=== PATIENT | female | born 1950 | race Caucasian/White ===

== ENCOUNTER → 2017-07-28 | Outpatient (CLI) | payer MEDICARE, MEDICAID ==
--- NOTE | 2017-07-28 12:22 | Diagnostic Imaging Report ---
INDICATION: Wheezing and shortness of air. TIME OF EXAMINATION: 11:44 AM. COMPARISON: No prior studies are available for comparison. FINDINGS: The heart size is normal. No infiltrate or failure is detected. No effusion or pneumothorax is seen. There is an age-indeterminate midshaft fracture of the left clavicle with displacement, likely chronic. IMPRESSION: No acute cardiopulmonary process is detected. Dictated by: Dictated on workstation # [id number]
== END ==
LOC: RAD 11:19
PROVIDERS: ATTEND Internal Medicine Critical Care Medicine
DX: R06.02 Shortness of breath (principal); R06.2 Wheezing
CPT/HCPCS: 71046

== ENCOUNTER → 2017-08-15 | Outpatient (CLI) | payer MEDICARE, MEDICAID ==
[~2017-08-15] MED LIST: RT-ALBUTEROL SULF 2.5 MG/3 ML PRE-MIX VIAL INH ONE
== END ==
LOC: EDUNIT# 07-28 10:36 → RT 08:37
PROVIDERS: ATTEND Internal Medicine Critical Care Medicine
DX: R06.02 Shortness of breath (principal)
CPT/HCPCS: 94060; 94726; 94729

== ENCOUNTER 2017-09-29 09:00 | Outpatient (RCR) | payer MEDICARE, MEDICAID ==
[2017-10-04 09:00] VITALS: BP 125/60
[2017-10-04 10:00] VITALS: BP 122/90
[2017-10-11 09:00] VITALS: BP 140/69
[2017-10-11 10:00] VITALS: BP 120/60
[2017-10-13 08:50] VITALS: BP 120/70
[2017-10-13 10:00] VITALS: BP 115/60
[2017-10-18 08:50] VITALS: BP 130/80
[2017-10-18 10:00] VITALS: BP 120/80
[2017-10-20 08:53] VITALS: BP 130/60
[2017-10-20 10:05] VITALS: BP 122/80
[2017-10-25 09:00] VITALS: BP 131/100
[2017-10-25 10:00] VITALS: BP 140/70
[2017-10-27 08:55] VITALS: BP 154/89
[2017-10-27 09:50] VITALS: BP 130/80
[2017-11-01 09:00] VITALS: BP 130/60
[2017-11-01 10:00] VITALS: BP 128/60
[2017-11-03 08:40] VITALS: BP 132/90
[2017-11-03 08:42] VITALS: BP 132/90
[2017-11-03 09:44] VITALS: BP 124/80
[2017-11-03 10:00] VITALS: BP 124/80
== END 2017-11-27 | disposition home or self-care (01) ==
LOC: PULM 09:00
PROVIDERS: ATTEND Internal Medicine Critical Care Medicine
DX: J44.9 Chronic obstructive pulmonary disease, unspecified (principal)
CPT/HCPCS: 99211

== ENCOUNTER 2018-04-06 10:00 | Outpatient (RCR) | payer MEDICARE, MEDICAID ==
[2018-01-24 10:00] VITALS: BP 122/80
[2018-01-24 10:50] VITALS: BP 123/60
[2018-01-26 09:58] VITALS: BP 120/60
[2018-01-26 10:50] VITALS: BP 115/60
[2018-01-31 09:50] VITALS: BP 140/92
[2018-01-31 10:40] VITALS: BP 128/60
[2018-02-02 09:58] VITALS: BP 120/82
[2018-02-02 10:55] VITALS: BP 122/82
[2018-02-07 09:55] VITALS: BP 140/60
[2018-02-07 10:50] VITALS: BP 120/50
[2018-02-09 10:00] VITALS: BP 128/72
[2018-02-09 11:15] VITALS: BP 128/80
[2018-02-14 09:50] VITALS: BP 145/60
[2018-02-14 10:47] VITALS: BP 120/60
[2018-02-16 10:00] VITALS: BP 140/90
[2018-02-16 11:00] VITALS: BP 120/40
[2018-02-23 10:00] VITALS: BP 120/60
[2018-02-23 11:00] VITALS: BP 120/76
[2018-02-28 10:00] VITALS: BP 128/60
[2018-02-28 11:00] VITALS: BP 122/60
[2018-03-02 09:58] VITALS: BP 118/80
[2018-03-02 11:03] VITALS: BP 120/80
[2018-03-07 09:55] VITALS: BP 122/80
[2018-03-07 11:00] VITALS: BP 130/80
[2018-03-09 10:00] VITALS: BP 121/40
[2018-03-09 11:12] VITALS: BP 135/50
[2018-03-14 10:00] VITALS: BP 150/70
[2018-03-14 10:56] VITALS: BP 130/80
[2018-03-16 10:00] VITALS: BP 120/60
[2018-03-16 10:49] VITALS: BP 120/60
[2018-03-21 09:50] VITALS: BP 158/82
[2018-03-21 10:50] VITALS: BP 141/77
[2018-03-23 09:44] VITALS: BP 151/90
[2018-03-23 10:58] VITALS: BP 150/82
[2018-03-28 10:00] VITALS: BP 120/80
[2018-03-28 11:00] VITALS: BP 130/50
[2018-03-30 10:00] VITALS: BP 120/60
[2018-03-30 11:00] VITALS: BP 140/81
[2018-04-04 10:00] VITALS: BP 152/70
[2018-04-04 10:58] VITALS: BP 140/80
[2018-04-06 09:55] VITALS: BP 130/67
[2018-04-06 10:57] VITALS: BP 130/72
[2018-04-11 09:40] VITALS: BP 154/94
[2018-04-11 10:23] VITALS: BP 138/76
[2018-04-13 10:50] VITALS: BP 138/90
[2018-04-18 10:00] VITALS: BP 140/82
[2018-04-18 11:00] VITALS: BP 130/80
== END 2018-04-16 | disposition home or self-care (01) ==
LOC: PULM 10:00
PROVIDERS: ATTEND Nurse Practitioner Family
DX: J44.9 Chronic obstructive pulmonary disease, unspecified (principal)
CPT/HCPCS: 99211

== ENCOUNTER 2018-06-01 10:00 | Outpatient (RCR) | payer MEDICARE, MEDICAID ==
[2018-04-20 09:45] VITALS: BP 130/70
[2018-04-20 10:53] VITALS: BP 127/50
[2018-04-25 10:00] VITALS: BP 130/50
[2018-04-25 11:00] VITALS: BP 115/50
[2018-04-27 09:55] VITALS: BP 135/78
[2018-04-27 10:50] VITALS: BP 122/80
[2018-05-02 09:50] VITALS: BP 120/80
[2018-05-02 10:40] VITALS: BP 160/60
[2018-05-04 10:00] VITALS: BP 140/80
[2018-05-04 11:03] VITALS: BP 130/80
[2018-05-09 09:40] VITALS: BP 128/87
[2018-05-09 10:50] VITALS: BP 130/80
[2018-05-11 10:00] VITALS: BP 130/85
[2018-05-11 11:00] VITALS: BP 138/80
[2018-05-16 09:45] VITALS: BP 130/80
[2018-05-16 11:00] VITALS: BP 132/82
[2018-05-18 10:00] VITALS: BP 160/80
[2018-05-18 11:00] VITALS: BP 134/62
[2018-05-23 11:00] VITALS: BP 150/60
[2018-05-30 09:45] VITALS: BP 160/80
[2018-05-30 10:50] VITALS: BP 120/90
[2018-06-01 10:00] VITALS: BP 130/60
[2018-06-01 11:00] VITALS: BP 140/80
== END 2018-07-19 | disposition home or self-care (01) ==
LOC: PULM 10:00
PROVIDERS: ATTEND Nurse Practitioner Family
DX: J44.9 Chronic obstructive pulmonary disease, unspecified (principal)

== ENCOUNTER 2018-09-18 10:35 | Emergency (ER) | payer MEDICARE, MEDICAID ==
[~2018-09-18] VITALS: Ht 170.2 cm; Wt 72.1 kg
[2018-09-18 12:13] LABS: HEMOGLOBIN 11.1 G/DL (11.5-16.0); MEAN CORPUSCULAR HEMOGLOBIN 28 PG (25-34); WHITE BLOOD COUNT 8.7 10^3/uL (4.3-11.0)
[2018-09-18 12:14] LABS: BASOPHILS # (AUTO) 0.1 10^3/uL (0.0-0.1); BASOPHILS % (AUTO) 1 % (0-10); EOSINOPHILS # (AUTO) 0.1 10^3/uL (0.0-0.3); EOSINOPHILS % (AUTO) 1 % (0-10); HEMATOCRIT 35 % (35-52); LYMPHOCYTES # (AUTO) 1.3 X 10^3 (1.0-4.0); LYMPHOCYTES % (AUTO) 14 % (12-44); MEAN CORPUSCULAR HGB CONC 31 G/DL (32-36); MEAN CORPUSCULAR VOLUME 89 FL (80-99); MEAN PLATELET VOLUME 9.7 FL (7.4-10.4); MONOCYTES # (AUTO) 0.8 X 10^3 (0.0-1.0); MONOCYTES % (AUTO) 9 % (0-12); NEUTROPHILS # (AUTO) 6.4 X 10^3 (1.8-7.8); NEUTROPHILS % (AUTO) 74 % (42-75); PLATELET COUNT 308 10^3/uL (130-400); RED CELL DISTRIBUTION WIDTH 13.4 % (10.0-14.5)
--- NOTE | 2018-09-18 12:33 | Diagnostic Imaging Report ---
INDICATION: Shortness of breath. TIME OF EXAM: 12:07 p.m. COMPARISON: Correlation is made with prior study from 07/28/2017. FINDINGS: The heart is enlarged but stable. There are some interstitial changes in both lungs, which are more prominent than prior exam. No parenchymal consolidation is seen. No effusion or pneumothorax is identified. IMPRESSION: Cardiomegaly and mild interstitial changes which may be owing to mild congestion. Dictated by: Dictated on workstation # [id number]
[2018-09-18 12:35] LABS: BUN/CREATININE RATIO 16; CARBON DIOXIDE 26 MMOL/L (21-32); CHLORIDE 103 MMOL/L (98-107); CREATININE SERUM 0.82 MG/DL (0.60-1.30); GFR ESTIMATED > 60; GLUCOSE 97 MG/DL (70-105); SODIUM 143 MMOL/L (135-145)
[2018-09-18 12:36] LABS: ALANINE AMINOTRANSFERASE 7 U/L (0-55); ALBUMIN 4.1 GM/DL (3.2-4.5); ALKALINE PHOSPHATASE 100 U/L (40-136); BILIRUBIN,TOTAL 0.4 MG/DL (0.1-1.0); CALCIUM 9.9 MG/DL (8.5-10.1); TOTAL PROTEIN 7.2 GM/DL (6.4-8.2)
--- NOTE | 2018-09-18 12:36 | Diagnostic Imaging Report ---
PROCEDURE: CT head without contrast. TECHNIQUE: Multiple contiguous axial images were obtained through the brain without the use of intravenous contrast. INDICATION: Altered mental status. COMPARISON: No prior studies are available for comparison. FINDINGS: Ventricles are within normal limits. There appears to be some mild cerebellar atrophy present. No midline shift or hemorrhage is detected. Cisterns are patent. Visualized paranasal sinuses are clear. IMPRESSION: No acute intracranial process is detected. Dictated by: Dictated on workstation # [id number]
--- NOTE | 2018-09-18 12:50 | NUR ---
Report was given to Mylene at this time and care was transferred.
[2018-09-18 12:53] LABS: LIPASE 27 U/L (8-78)
[2018-09-18 13:07] VITALS: BP_SYST 135; BP_SYST 142; BP_SYST 143; BP_DIAS 75; BP_DIAS 80; BP_DIAS 88
[2018-09-18] MEDS ORDERED: FUROSEMIDE 40 MG/4 ML INJ (LASIX) IVP ONE (13:15)
--- NOTE | 2018-09-18 13:35 | ED Dyspnea ---
General Chief Complaint: Neurological Problems Stated Complaint: ALTERED MENTAL STATUS Nursing Triage Note: Pt arrived by private car with overnight caregiver, with chief complaint of alerted mental status. Pt was wheeled to room 1 and assisted into bed. Pt's overnight caregiver stated that according to her boyfriend the patient has been hallucinated this weekend. According to the patient this started yesterday. Pt also stated she was not feeling well. Pt was able to tell me the day of week, time of day, month, year, president, current location and name/. Pt has had previous stroke according to certified social workers in health care. History of Present Illness Date Seen by Provider: Sep 18, 2018 Time Seen by Provider: 12:30 Initial Comments This is a 68 y/o f who presents to the ED for evaluation. Pt with multiple complaints. Pt is alert to self/place/year but has poor memory and is a very poor historian. She has poor insight into her chronic medical conditions and is not able to provide complete details. Her home health provider is at bedside and helps a little bit more. Caregiver reports significant dyspnea over the past 2-3 weeks, progressive. Has history of COPD is on 2L at home but now requiring continuously for the past 2- 3 days. Pt denies any exertional chest pain. No LE edema. Denies history of CHF but is on daily lasix. Pt also with increased confusion and periods of hallucination over the past 2-3 days. Per family at home she has been frequently talking to people who are not present. Pt with history of CVA does not have any residual weakness. denies any dysuria, no fever, no cough. Allergies and Home Medications Allergies Coded Allergies: strawberry (Unverified Allergy, Severe, HIVES, 08/15/17) Penicillins (Unverified Allergy, Unknown, RASH, 08/15/17) Patient Home Medication List Home Medication List Reviewed: Yes Review of Systems Review of Systems Constitutional: No chills, No fever, No weakness Constitutional: No chills, No fever, No weakness Skin: no rash, no itching, no lesions Resp: no cough,+ SOB< no wheezing Cards: no chest pain, +orthopnea, no palpitations GI: no abdominal pain, no nausea, no vomiting, no diarrhea : no dysuria Endo: no polyuria, no polyphagia, no polydipsia Psych: No depression, no substance abuse, No substance abuse Past Fcdeusi-Philus-Grncbn Hx Patient Social History Alcohol Use: Denies Use Recreational Drug Use: No Smoking Status: Former Smoker Type Used: Cigarettes 2nd Hand Smoke Exposure: No Recent Foreign Travel: No Contact w/Someone Who Travel: No Recent Infectious Disease Expo: No Recent Hopitalizations: No Physical Abuse: No Sexual Abuse: No Mistreated: No Fear: No Seasonal Allergies Seasonal Allergies: No Past Medical History Surgeries: No Emphysema Cardiac: Yes High Cholesterol Neurological: Yes (CVA) Headaches /Migraines Genitourinary: No Gastrointestinal: No Musculoskeletal: Yes (nondisplaced fracture of distal fibula, displaced fracture fifth metacarpal) HEENT: No Cancer: No Psychosocial: No Integumentary: Yes (cellulitis, abscess of neck) Blood Disorders: No Physical Exam Vital Signs Vital Signs - First Documented 09/18/18 11:19 Temp 98.8 Pulse 108 Resp 18 B/P (MAP) 135/75 (95) Pulse Ox 90 O2 Delivery Nasal Cannula O2 Flow Rate 2.50 Capillary Refill : Less Than 3 Seconds Height, Weight, BMI Height: 5'7.00" Weight: 159lbs. 0.4oz. [id number]; BMI Method:Stated General Appearance: No Apparent Distress, Chronically ill Other comments HEENT: NC/AT Neck: No JVD, Normal ROM Respiratory: No respiratory distress, bilateral crackles, no wheezing Cardio: RRR, no rubs, no murmurs, no clicks, no gallops, Radial pulses +2/4 bilateral GI: Soft, non-distended, no masses, non-tender Back: Normal ROM Extremities: No swelling, no deformities, intact general mobility/ROM, pulses present in all 4 extremities Neuro: Alert to self/place/year, confused, unable to provide recent history. Follows commands. non-focal neurological exam. Psych: Calm, Cooperative, Focused Exam Lactate Level 09/18/18 12:00: Lactic Acid Level 0.95 Lactic Acid Level Laboratory Tests Test 09/18/18 12:00 Lactic Acid Level 0.95 MMOL/L (0.50-2.00) Progress/Results/Core Measures Results/Orders Lab Results Laboratory Tests Test 09/18/18 12:00 09/18/18 13:45 Range/Units White Blood Count 8.7 4.3-11.0 10^3/uL Red Blood Count 3.98 L 4.35-5.85 10^6/uL Hemoglobin 11.1 L 11.5-16.0 G/DL Hematocrit 35 35-52 % Mean Corpuscular Volume 89 80-99 FL Mean Corpuscular Hemoglobin 28 25-34 PG Mean Corpuscular Hemoglobin Concent 31 L 32-36 G/DL Red Cell Distribution Width 13.4 10.0-14.5 % Platelet Count 308 130-400 10^3/uL Mean Platelet Volume 9.7 7.4-10.4 FL Neutrophils (%) (Auto) 74 42-75 % Lymphocytes (%) (Auto) 14 12-44 % Monocytes (%) (Auto) 9 0-12 % Eosinophils (%) (Auto) 1 0-10 % Basophils (%) (Auto) 1 0-10 % Neutrophils # (Auto) 6.4 1.8-7.8 X 10^3 Lymphocytes # (Auto) 1.3 1.0-4.0 X 10^3 Monocytes # (Auto) 0.8 0.0-1.0 X 10^3 Eosinophils # (Auto) 0.1 0.0-0.3 10^3/uL Basophils # (Auto) 0.1 0.0-0.1 10^3/uL Sodium Level 143 135-145 MMOL/L Potassium Level 4.0 3.6-5.0 MMOL/L Chloride Level 103 98-107 MMOL/L Carbon Dioxide Level 26 21-32 MMOL/L Anion Gap 14 5-14 MMOL/L Blood Urea Nitrogen 13 7-18 MG/DL Creatinine 0.82 0.60-1.30 MG/DL Estimat Glomerular Filtration Rate > 60 BUN/Creatinine Ratio 16 Glucose Level 97 70-105 MG/DL Lactic Acid Level 0.95 0.50-2.00 MMOL/L Calcium Level 9.9 8.5-10.1 MG/DL Corrected Calcium 9.8 8.5-10.1 MG/DL Total Bilirubin 0.4 0.1-1.0 MG/DL Aspartate Amino Transf (AST/SGOT) 15 5-34 U/L Alanine Aminotransferase (ALT/SGPT) 7 0-55 U/L Alkaline Phosphatase 100 40-136 U/L Troponin T 44 H <=10 NG/L Pro-B-Type Natriuretic Peptide 6403.0 H <75.0 PG/ML Total Protein 7.2 6.4-8.2 GM/DL Albumin 4.1 3.2-4.5 GM/DL Lipase 27 8-78 U/L Urine Color YELLOW Urine Clarity CLEAR Urine pH 7.0 5-9 Urine Specific [place] 1.010 L 1.016-1.022 Urine Protein TRACE NEGATIVE Urine Glucose (UA) NEGATIVE NEGATIVE Urine Ketones NEGATIVE NEGATIVE Urine Nitrite NEGATIVE NEGATIVE Urine Bilirubin NEGATIVE NEGATIVE Urine Urobilinogen 0.2 NORMAL MG/DL Urine Leukocyte Esterase NEGATIVE NEGATIVE Urine RBC (Auto) NEGATIVE NEGATIVE Urine RBC NONE /HPF Urine WBC NONE /HPF Urine Crystals NONE /LPF Urine Bacteria NONE /HPF Urine Casts NONE /LPF Urine Mucus NEGATIVE /LPF Urine Culture Indicated NO My Orders Orders - LARISA SOLANO DO Continuous Ekg Monitoring (09/18/18 11:35) Orthostatic Vital Signs (Adult (09/18/18 11:35) Cbc With Automated Diff (09/18/18 11:35) Comprehensive Metabolic Panel (09/18/18 11:35) Lipase (09/18/18 11:35) Lactic Acid Analyzer (09/18/18 11:35) Ua Culture If Indicated (09/18/18 11:35) Troponin T (09/18/18 11:35) Chest 1 View Ap/Pa Only (09/18/18 11:35) Ekg Tracing (09/18/18 11:35) Ct Head Wo (09/18/18 11:35) Probnp Fs (09/18/18 12:37) Furosemide Injection (Lasix Injection) (09/18/18 13:15) Medications Given in ED Current Medications Medications Dose Ordered Sig/Jalyn Route Start Time Stop Time Status Last Admin Dose Admin Furosemide 40 mg ONCE ONCE IVP 09/18/18 13:15 09/18/18 13:16 DC 09/18/18 13:52 40 MG Vital Signs/I&O 09/18/18 11:19 Temp 98.8 Pulse 108 Resp 18 B/P (MAP) 135/75 (95) Pulse Ox 90 O2 Delivery Nasal Cannula O2 Flow Rate 2.50 Blood Pressure Mean: 95 Progress Progress Note : Time: 13:00 Progress Note Pt with progressive dypsnea over the past few weeks and likely new onset CHF. Requiring continuous supplemental NC here with O2 sat of 88% on RA. no wheezing on exam. labs consistent with CHF exacerbation as well. Pending urine still. CT head with no acute findings. Pt will require hospitalization for likely new onset CHF. [facility] on diversion. Family prefers transfer to [facility] but there are no beds available there. Discussed with Dr. Churchill, prescriptionist with Cardiology at [facility] who have accepted the pt. BP has remained stable. She remains oriented to self/place/year but continues to seem pleasantly confused on continued conversations. IV lasix given in ED. EKG with no acute ischemic changes. Will transfer when [facility] [employer] farm[employer] service available. 1433: UA with no acute infection. Initial ECG Impression Date: Sep 18, 2018 EKG : EKG Time: 12:29 Rate: 107 Rhythm: S.Tach Comment No previous to compared to. Moderate artifiact. No significant ST segment or T wave changes. Diagnostic Imaging Comments CXR IMPRESSION: Cardiomegaly and mild interstitial changes which may be owing to mild congestion. CT Head IMPRESSION: No acute intracranial process is detected. Departure Impression Primary Impression: Acute respiratory distress Additional Impressions: Hypoxia Dyspnea Congestive heart failure Confusion Disposition: 02 XFER SHT-TRM HOSP Condition: Unchanged Departure-Patient Inst. Referrals: ZOHRA GARCIA APRN (PCP/Family) Primary Care Physician LARISA SOLANO DO Sep 18, 2018 13:34
[2018-09-18 14:03] LABS: BILIRUBIN,URINE NEGATIVE (NEGATIVE); CLARITY,URINE CLEAR; COLOR,URINE YELLOW; GLUCOSE, URINE (UA) NEGATIVE (NEGATIVE); KETONES,URINE NEGATIVE (NEGATIVE); LEUKOCYTE ESTERASE ,URINE NEGATIVE (NEGATIVE); NITRITE,URINE NEGATIVE (NEGATIVE); PROTEIN,URINE TRACE (NEGATIVE); UROBILINOGEN,URINE 0.2 MG/DL (NORMAL)
[2018-09-18 16:00] VITALS: BP 127/94
== END 2018-09-18 16:00 | disposition short-term general hospital (02) ==
LOC: EDUNIT# 10:35 → ER FS 10:38
DX: R09.02 Hypoxemia (principal); I50.9 Heart failure, unspecified; R06.00 Dyspnea, unspecified; R41.0 Disorientation, unspecified; R06.03 Acute respiratory distress; J43.9 Emphysema, unspecified; G43.909 Migraine, unspecified, not intractable, without status migrainosus; Z99.81 Dependence on supplemental oxygen; Z86.73 Personal history of transient ischemic attack (TIA), and cerebral infarction without residual deficits; Z88.0 Allergy status to penicillin; Z91.018 Allergy to other foods; Z87.891 Personal history of nicotine dependence
CPT/HCPCS: 36415; 51702; 70450; 71045; 80053; 81000; 83605; 83690; 83880; 84484; 85025; 93005

== ENCOUNTER → 2019-02-15 | Outpatient (CLI) | payer MEDICARE, MEDICAID ==
--- NOTE | 2019-02-15 12:24 | Diagnostic Imaging Report ---
EXAMINATION: CT of the chest without contrast (lung cancer screening). HISTORY: Greater than [id number] history of smoking. FINDINGS: No comparison available. There is moderate emphysema. No edema or pneumonia. No pleural effusion or pneumothorax. There is a small perifissural lymph node measuring 6 mm along the right major fissure. No suspicious nodules are seen. Heart size is normal. No pericardial effusion. Aorta is normal in caliber. There are mild coronary artery calcifications. No axillary, supraclavicular or mediastinal lymphadenopathy. There is a small hiatal hernia. Upper abdomen is otherwise normal. No suspicious osseous lesions are seen. There are subacute right seventh and eighth rib fractures. There is a mild T10 compression fracture. Age indeterminate. IMPRESSION: 1. No suspicious pulmonary nodules. 2. Subacute right seventh and eighth rib fractures. 3. Mild age-indeterminate T10 compression fracture. LungRads category: 2. Modifier: S. OTHER SIGNIFICANT FINDINGS: Rib fractures and compression fracture as described above. Dictated by: Dictated on workstation # [id number]
== END ==
LOC: RAD 10:48
PROVIDERS: ATTEND Nurse Practitioner Family
DX: S22.41XA Multiple fractures of ribs, right side, initial encounter for closed fracture (principal); S22.078A Other fracture of T9-T10 vertebra, initial encounter for closed fracture; Z87.891 Personal history of nicotine dependence

== ENCOUNTER → 2019-06-25 | Outpatient (CLI) | payer MEDICARE, MEDICAID ==
[~2019-06-25] MED LIST changes: +CATHETER FLUSH 10 ML SYR IV PRN; +HOLD METFORMIN - RECEIVED CONTRAST 20 ML VIAL IV SCH; +IOHEXOL 350 MG/ML 100 ML (OMNIPAQUE 350) VIAL IV ONE; +NS 100 ML (IVPB) BAG IV ONE; +RT-ALBUTEROL SULF 2.5 MG/3 ML PRE-MIX VIAL ONE
[2019-06-25 09:54] LABS: CREATININE SERUM 1.21 MG/DL (0.60-1.30)
--- NOTE | 2019-06-25 11:35 | Diagnostic Imaging Report ---
PROCEDURE: CT chest with contrast only. TECHNIQUE: Multiple contiguous axial images were obtained through the chest after administration of intravenous contrast. Auto Exposure Controls were utilized during the CT exam to meet ALARA standards for radiation dose reduction. DATE: June 25, 2019. COMPARISON: Chest radiograph September 18, 2018. CT chest February 15, 2019. This is grossly unchanged since February 15, 2019 given differences in exam technique. There is a subjacent 2 mm noncalcified right upper lobe pulmonary nodule. There is a 4 mm right middle lobe INDICATION: 69-year-old female, shortness of breath. FINDINGS: There are upper lobe predominant findings of centrilobular emphysema. There is a pleural-based right upper lobe pulmonary nodule on axial image 55 which measures 5 mm in size. There is a subjacent 2 mm right middle lobe pulmonary nodule and 4 mm right lower lobe pulmonary nodule on axial image 71. These are unchanged since prior CT chest. There is a 4 mm right lower lobe nodular opacity on axial image 64 which is unchanged. There is no new or enlarging pulmonary nodule. There is no additional focal airspace consolidation. There is no pneumothorax. There is no pleural effusion. The central airways are patent. There is no identified pulmonary embolus. The main pulmonary artery diameter is within normal limits. The heart is not enlarged. There is no pericardial effusion. There is no identified abnormally enlarged mediastinal, hilar, or axillary lymph node which meets CT size criteria for adenopathy. There are numerous low-attenuation lesions in the bilateral kidneys, many of which are too small to characterize. This appearance may reflect polycystic kidney disease. There is no renal atrophy. There is cholelithiasis without evidence of acute cholecystitis. There is a small to moderate-sized hiatal hernia. There are fractures of the right seventh and eighth ribs with prominent callus formation and lack of complete mature bony bridging at the current time. There is interval healing response since February 15, 2019. There is a compression type deformity of T10 without well visualized fracture line. This is unchanged since July 28, 2017. IMPRESSION: CT CHEST. 1. Stable subcentimeter pulmonary nodule since at least February 15, 2019. Recommend followup CT chest in 6 months to evaluate for continued stability. 2. Prominent upper lobe predominant findings of centrilobular emphysema. 3. No identified acute cardiopulmonary abnormality. 4. Incidental findings as above. Dictated by: Dictated on workstation # [id number]
== END ==
LOC: RAD 09:12
PROVIDERS: ATTEND Nurse Practitioner Family
DX: J43.2 Centrilobular emphysema (principal); M48.54XD Collapsed vertebra, not elsewhere classified, thoracic region, subsequent encounter for fracture with routine healing; N28.9 Disorder of kidney and ureter, unspecified; K80.20 Calculus of gallbladder without cholecystitis without obstruction; K44.9 Diaphragmatic hernia without obstruction or gangrene; R91.8 Other nonspecific abnormal finding of lung field; J42 Unspecified chronic bronchitis; G47.36 Sleep related hypoventilation in conditions classified elsewhere; G47.34 Idiopathic sleep related nonobstructive alveolar hypoventilation; F17.201 Nicotine dependence, unspecified, in remission
CPT/HCPCS: 36415; 71260; 82565; 84520; 94060; 94640; 94726; 94729

== ENCOUNTER 2019-09-04 10:45 | Outpatient (RCR) | payer MEDICARE, MEDICAID ==
[2019-07-10 10:45] VITALS: BP 100/50
[2019-07-10 11:30] VITALS: BP 92/63
[2019-07-12 10:45] VITALS: BP 120/70
[2019-07-12 11:52] VITALS: BP 100/50
[2019-07-17 10:36] VITALS: BP 130/60
[2019-07-17 11:40] VITALS: BP 114/80
[2019-07-19 10:30] VITALS: BP 118/80
[2019-07-19 11:40] VITALS: BP 115/60
[2019-07-24 10:20] VITALS: BP 128/80
[2019-07-24 11:37] VITALS: BP 118/80
[2019-07-26 10:20] VITALS: BP 130/87
[2019-07-26 11:40] VITALS: BP 100/70
[2019-08-02 10:35] VITALS: BP 115/60
[2019-08-02 11:43] VITALS: BP 106/80
[2019-08-07 10:25] VITALS: BP 120/60
[2019-08-07 11:43] VITALS: BP 130/90
[2019-08-09 10:25] VITALS: BP 131/64
[2019-08-09 11:17] VITALS: BP 112/72
[2019-08-14 10:45] VITALS: BP 120/60
[2019-08-14 11:51] VITALS: BP 106/80
[2019-08-16 10:20] VITALS: BP 130/70
[2019-08-16 11:47] VITALS: BP 127/80
[2019-08-21 10:45] VITALS: BP 100/60
[2019-08-21 11:39] VITALS: BP 106/74
[2019-08-23 10:30] VITALS: BP 122/65
[2019-08-23 11:55] VITALS: BP 120/60
[2019-08-28 10:45] VITALS: BP 120/60
[2019-08-28 11:39] VITALS: BP 116/60
[2019-08-30 10:28] VITALS: BP 120/60
[2019-08-30 11:45] VITALS: BP 106/62
[2019-08-30 11:50] VITALS: BP 130/60
[2019-09-04 10:40] VITALS: BP 122/68
[2019-09-04 11:30] VITALS: BP 120/60
[2019-09-06 10:15] VITALS: BP 140/78
[2019-09-06 11:24] VITALS: BP 114/80
[2019-09-11 10:30] VITALS: BP 128/67
[2019-09-11 11:35] VITALS: BP 128/60
[2019-09-13 10:20] VITALS: BP 120/80
[2019-09-13 11:37] VITALS: BP 105/60
[2019-09-18 10:45] VITALS: BP 108/58
[2019-09-18 12:00] VITALS: BP 113/60
[2019-09-20 09:55] VITALS: BP 98/50
[2019-09-20 10:32] VITALS: BP 108/60
== END 2019-09-18 | disposition home or self-care (01) ==
LOC: PULM 10:45
PROVIDERS: ATTEND Nurse Practitioner Family
DX: J44.9 Chronic obstructive pulmonary disease, unspecified (principal); J42 Unspecified chronic bronchitis; F17.201 Nicotine dependence, unspecified, in remission; G47.34 Idiopathic sleep related nonobstructive alveolar hypoventilation; G47.36 Sleep related hypoventilation in conditions classified elsewhere
CPT/HCPCS: 99211

== ENCOUNTER → 2020-02-01 | Outpatient (CLI) | payer MEDICARE, MEDICAID ==
[~2020-02-01] MED LIST changes: -RT-ALBUTEROL SULF 2.5 MG/3 ML PRE-MIX VIAL INH ONE; -RT-ALBUTEROL SULF 2.5 MG/3 ML PRE-MIX VIAL ONE
[2020-02-01 09:46] LABS: CREATININE SERUM 1.16 MG/DL (0.60-1.30)
--- NOTE | 2020-02-01 11:29 | Diagnostic Imaging Report ---
PROCEDURE: CT chest with contrast only. TECHNIQUE: Multiple contiguous axial images were obtained through the chest after administration of intravenous contrast. Auto Exposure Controls were utilized during the CT exam to meet ALARA standards for radiation dose reduction. INDICATION: Shortness of breath, chronic bronchitis. COMPARISON: June 25, 2019, and February 15, 2019. FINDINGS: Calcified right hilar lymph nodes are present. No pathologically enlarged lymph nodes within the chest. No aneurysmal dilatation of the thoracic aorta. Minimal scattered vascular calcifications. The heart is within normal limits in size. Moderate-sized hiatal hernia. No pericardial effusion. No pleural effusion. Moderate background predominantly centrilobular emphysematous changes are again identified. These have an upper lobe predilection. 0.4 cm pleural-based right upper lobe pulmonary nodule is again identified and stable, axial image 31. Stable 5 mm subpleural right lower lobe pulmonary nodule, axial image 68. Stable 5 mm right middle lobe pulmonary nodule, axial image 81. No new pulmonary nodule or opacity. The trachea is patent. Innumerable cysts and hypodensities again noted throughout the kidneys bilaterally. Cholelithiasis. Chronic healed right-sided rib fracture. Stable anterior wedge deformity within the lower thoracic spine. No acute osseous abnormality. IMPRESSION: 1. Stable bilateral sub 6 mm pulmonary nodules. These remain indeterminate. Recommend a follow-up CT of the chest in 12 months to ensure stability. 2. Moderate upper lobe-predominant background emphysematous changes, predominantly centrilobular in nature. 3. Moderate-sized hiatal hernia. 4. Evidence of chronic granulomatous disease. 5. Cholelithiasis. Dictated by: Dictated on workstation # [id number]
== END ==
LOC: RAD FS 08:46
PROVIDERS: ATTEND Nurse Practitioner Family
DX: J43.9 Emphysema, unspecified (principal); G47.34 Idiopathic sleep related nonobstructive alveolar hypoventilation; G47.36 Sleep related hypoventilation in conditions classified elsewhere; F17.201 Nicotine dependence, unspecified, in remission; R91.8 Other nonspecific abnormal finding of lung field; K44.9 Diaphragmatic hernia without obstruction or gangrene; K80.20 Calculus of gallbladder without cholecystitis without obstruction
CPT/HCPCS: 36415; 71260; 82565; 84520

== ENCOUNTER 2020-02-20 14:05 | Emergency (ER) | payer MEDICARE, MEDICAID ==
--- NOTE | 2020-02-22 08:09 | Diagnostic Imaging Report ---
EXAMINATION: CT head. Axial imaging through the brain was performed without contrast. INDICATION: Fall hitting the back of the head. COMPARISON: Correlation made with CT head from 09/18/2018. FINDINGS: Ventricular size and sulcal pattern are stable. There does appear to be some cerebellar atrophy similar to prior exam. No sulcal effacement or midline shift is detected. No acute intra-axial or extra-axial hemorrhage is detected. Cisterns are patent. Visualized paranasal sinuses are clear. IMPRESSION: No acute intracranial process is detected. Dictated by: Dictated on workstation # [id number]
== END 2020-02-20 14:55 | disposition home or self-care (01) ==
LOC: EDUNIT# 14:05 → ER FS 14:06
DX: S00.03XA Contusion of scalp, initial encounter (principal); R26.89 Other abnormalities of gait and mobility; Z86.73 Personal history of transient ischemic attack (TIA), and cerebral infarction without residual deficits; W18.39XA Other fall on same level, initial encounter; W22.8XXA Striking against or struck by other objects, initial encounter
CPT/HCPCS: 70450

== ENCOUNTER 2020-03-10 22:17 | Observation (INO) | payer MEDICARE, MEDICAID ==
[~2020-03-10] VITALS: Ht 162.5 cm; Wt 75.2 kg
[2020-03-10] MEDS ORDERED: ONDANSETRON 4 MG/2 ML (SDV) Z0FRAN IVP ONE (22:30)
[2020-03-10] MEDS ORDERED: ASPIRIN 81 MG CHEW (CHILDREN'S ASA) PO ONE (22:30)
--- NOTE | 2020-03-10 22:37 | ED Chest Pain ---
General Chief Complaint: Chest Pain Stated Complaint: CHEST PAIN History of Present Illness Date Seen by Provider: Mar 10, 2020 Time Seen by Provider: 22:26 Initial Comments The patient is a 70-year-old female with a history of hypertension, hyperlipide jeff, unclear whether any history of coronary disease, heart failure with unclear ejection fraction on daily Lasix, COPD with chronic respiratory failure on 3 L of nasal cannula oxygen at nighttime only. She presents with concern for acute onset of left-sided sternal chest discomfort localizing over her left breast, as well as lateral and superolateral to it, all with onset about 2 hours prior to arrival while the patient was getting ready for bed. Pain was initially sharp but has become more of a dull ache since onset. Severity was an 8 out of 10 at onset and until EMS administered a single sublingual nitroglycerin, which reduced pain to a 4 out of 10 in severity. Associated nausea without vomiting. No associated fevers, upper respiratory congestion/rhinorrhea, cough, shortness of breath worse than usual (patient reports using her typical baseline home oxygen and not needing it during the daytime recently), abdominal pain, flank pain, back pain, pain or swelling of bilateral legs. Patient is alert and pleasantly and appropriately interactive and in no acute distress upon initial assessment here in the emergency department. Initial vital signs notable for mild tachycardia to the 110s. Patient is saturating at 95% on 2 L per nasal cannula applied by EMS for comfort. Vtal signs are otherwise reassuring. Allergies and Home Medications Allergies Coded Allergies: strawberry (Unverified Allergy, Severe, HIVES, 08/15/17) Penicillins (Unverified Allergy, Unknown, RASH, 08/15/17) Patient Home Medication List Home Medication List Reviewed: Yes Review of Systems Review of Systems Constitutional: see HPI All Other Systems Reviewed Negative Unless Noted: Yes (Negative excepted noted.) Past Cxkfone-[place]hm[place]-Ymxmhj Hx Past Med/Social Hx: Reviewed Nursing Past Med/Soc Hx Patient Social History Type Used: Cigarettes 2nd Hand Smoke Exposure: No Recent Hopitalizations: No Seasonal Allergies Seasonal Allergies: No Past Medical History Surgeries: No Emphysema Cardiac: Yes High Cholesterol Neurological: Yes (CVA) Headaches /Migraines Genitourinary: No Gastrointestinal: No Musculoskeletal: Yes (nondisplaced fracture of distal fibula, displaced fracture fifth metacarpal) HEENT: No Cancer: No Psychosocial: No Integumentary: Yes (cellulitis, abscess of neck) Blood Disorders: No Family Medical History Reviewed Nursing Family Hx Physical Exam Vital Signs Vital Signs - First Documented Capillary Refill : Height, Weight, BMI Height: 5'7.00" Weight: 165lbs. 4.0oz. 72.753261sz; BMI Method:Stated General Appearance: No Apparent Distress Other comments This is an elderly female appearing nontoxic and in no acute distress. Head is normocephalic and atraumatic. Neck is supple and nontender. Oropharynx is moist. Lungs are clear to auscultation at all stations. There is a normal S1 and S2 without rubs or gallops and capillary refill is appropriate, less than 2 seconds globally. No murmurs. Peripheral pulses are 2+ and equal to bilateral upper and lower extremities. No dependent peripheral edema to lower extremities. Abdomen is soft, nontender and nondistended and no pulsatile mass is noted. Skin is warm and dry without cyanosis, clubbing or edema. Psychiatrically, the patient does straights appropriate mood and affect and is alert. Progress/Results/Core Measures Results/Orders Lab Results Laboratory Tests Test 03/10/20 22:30 Range/Units White Blood Count 9.6 4.3-11.0 10^3/uL Red Blood Count 3.93 L 4.35-5.85 10^6/uL Hemoglobin 11.5 11.5-16.0 G/DL Hematocrit 35 35-52 % Mean Corpuscular Volume 88 80-99 FL Mean Corpuscular Hemoglobin 29 25-34 PG Mean Corpuscular Hemoglobin Concent 33 32-36 G/DL Red Cell Distribution Width 13.2 10.0-14.5 % Platelet Count 326 130-400 10^3/uL Mean Platelet Volume 9.3 7.4-10.4 FL Neutrophils (%) (Auto) 64 42-75 % Lymphocytes (%) (Auto) 22 12-44 % Monocytes (%) (Auto) 10 0-12 % Eosinophils (%) (Auto) 3 0-10 % Basophils (%) (Auto) 1 0-10 % Neutrophils # (Auto) 6.2 1.8-7.8 X 10^3 Lymphocytes # (Auto) 2.2 1.0-4.0 X 10^3 Monocytes # (Auto) 0.9 0.0-1.0 X 10^3 Eosinophils # (Auto) 0.3 0.0-0.3 10^3/uL Basophils # (Auto) 0.1 0.0-0.1 10^3/uL Prothrombin Time 12.6 12.2-14.7 SEC INR Comment 0.9 0.8-1.4 Activated Partial Thromboplast Time 27 24-35 SEC D-Dimer 0.51 H 0.00-0.49 UG/ML Sodium Level 142 135-145 MMOL/L Potassium Level 4.0 3.6-5.0 MMOL/L Chloride Level 104 98-107 MMOL/L Carbon Dioxide Level 26 21-32 MMOL/L Anion Gap 12 5-14 MMOL/L Blood Urea Nitrogen 22 H 7-18 MG/DL Creatinine 1.19 0.60-1.30 MG/DL Estimat Glomerular Filtration Rate 45 BUN/Creatinine Ratio 18 Glucose Level 116 H 70-105 MG/DL Calcium Level 10.3 H 8.5-10.1 MG/DL Corrected Calcium 10.2 H 8.5-10.1 MG/DL Total Bilirubin 0.2 0.1-1.0 MG/DL Aspartate Amino Transf (AST/SGOT) 17 5-34 U/L Alanine Aminotransferase (ALT/SGPT) 13 0-55 U/L Alkaline Phosphatase 112 40-136 U/L Troponin I < 0.30 <0.30 NG/ML Pro-B-Type Natriuretic Peptide 101.5 H <75.0 PG/ML Total Protein 7.1 6.4-8.2 GM/DL Albumin 4.1 3.2-4.5 GM/DL My Orders Orders - HANDY ALDRICH MD Cbc With Automated Diff (03/10/20 22:25) Comprehensive Metabolic Panel (03/10/20 22:25) Troponin I Fs (03/10/20 22:25) Ekg Tracing (03/10/20 22:25) Chest 1 View Ap/Pa Only (03/10/20 22:25) Protime With Inr (03/10/20 22:25) Partial Thromboplastin Time (03/10/20 22:25) Probnp Fs (03/10/20 22:25) Fibrin Degradation Products (03/10/20 22:25) Aspirin Chewable Tablet (Baby Aspirin Ch (03/10/20 22:30) Ondansetron Injection (Zofran Injectio (03/10/20 22:30) Medications Given in ED Current Medications Medications Dose Ordered Sig/Jalyn Route Start Time Stop Time Status Last Admin Dose Admin Aspirin 324 mg ONCE ONCE PO 03/10/20 22:30 03/10/20 22:31 DC 03/10/20 22:37 324 MG Ondansetron HCl 4 mg ONCE ONCE IVP 03/10/20 22:30 03/10/20 22:31 DC 03/10/20 22:37 4 MG Vital Signs/I&O 03/10/20 03/10/20 22:17 22:17 Temp 36.7 Pulse 107 Resp 17 B/P (MAP) 142/90 (107) Pulse Ox 95 O2 Delivery Room Air Room Air Progress Progress Note : Progress Note 1030: Elderly female with multiple cardiorespiratory comorbidities, poor historian, who presents for evaluation of 2 hours of chest discomfort. Discomfort seems pleuritic rather than exertional and is somewhat reproducible with direct palpation; however, improved dramatically with administration of sublingual nitroglycerin enroute per EMS. HEART score 5, moderate risk for MACE. Wells low risk for PE. Mildly tachycardic but hemodynamically stable. Initial EKG nonischemic. We will check labs and chest x-ray and give a full strength aspirin (patient states she is allergic but clarifies that her allergy is that she becomes nauseous) and will then reevaluate. Anticipate at minimum admission to [facility] on an observation basis for telemetry monitoring, trending of troponins and attention from cardiology. Patient is in agreement with this plan of care. 2330: Workup unremarkable and reassuring. Troponin negative. D-dimer with only trace elevation at 0.51. Age-adjusted D-dimer cutoff is 0.70 and pretest probability is low (Wells PE score of 1.5, low risk, points only for tachycardia on presentation after SL NTG given enroute; no reported SOA worse than usual, not tachycardic on reassessment, at baseline with respect to O2 requirement, no calf tenderness or swelling). Will defer CTPA at this time. Dr. Simms graciously accepts to [facility] for observation admission. Stable for transfer at this time. EKG : Comment Sinus rhythm, rate 100, no acute ST elevation or depression, CT 128, QRS 97, QTC 449, EP interpretation. Nonischemic tracing. Departure Impression Primary Impression: Other chest pain Disposition: ADMITTED INPATIENT Condition: Stable Departure-Patient Inst. Referrals: [facility] (PCP) Primary Care Physician ZOHRA GARCIA APRN (Family) Primary Care Physician HANDY ALDRICH MD Mar 10, 2020 22:37
[2020-03-10 22:39] LABS: BASOPHILS % (AUTO) 1 % (0-10); EOSINOPHILS % (AUTO) 3 % (0-10); HEMATOCRIT 35 % (35-52); HEMOGLOBIN 11.5 G/DL (11.5-16.0); LYMPHOCYTES # (AUTO) 2.2 X 10^3 (1.0-4.0); LYMPHOCYTES % (AUTO) 22 % (12-44); MEAN CORPUSCULAR HEMOGLOBIN 29 PG (25-34); MEAN CORPUSCULAR HGB CONC 33 G/DL (32-36); MEAN CORPUSCULAR VOLUME 88 FL (80-99); MEAN PLATELET VOLUME 9.3 FL (7.4-10.4); MONOCYTES # (AUTO) 0.9 X 10^3 (0.0-1.0); MONOCYTES % (AUTO) 10 % (0-12); NEUTROPHILS # (AUTO) 6.2 X 10^3 (1.8-7.8); NEUTROPHILS % (AUTO) 64 % (42-75); PLATELET COUNT 326 10^3/uL (130-400); WHITE BLOOD COUNT 9.6 10^3/uL (4.3-11.0)
[2020-03-10 22:40] LABS: BASOPHILS # (AUTO) 0.1 10^3/uL (0.0-0.1); EOSINOPHILS # (AUTO) 0.3 10^3/uL (0.0-0.3)
[2020-03-10 23:11] LABS: ALANINE AMINOTRANSFERASE 13 U/L (0-55); ALKALINE PHOSPHATASE 112 U/L (40-136); BILIRUBIN,TOTAL 0.2 MG/DL (0.1-1.0); BUN/CREATININE RATIO 18; CALCIUM 10.3 MG/DL (8.5-10.1); CARBON DIOXIDE 26 MMOL/L (21-32); CHLORIDE 104 MMOL/L (98-107); CREATININE SERUM 1.19 MG/DL (0.60-1.30); GFR ESTIMATED 45; GLUCOSE 116 MG/DL (70-105); SODIUM 142 MMOL/L (135-145)
[2020-03-10 23:12] LABS: ALBUMIN 4.1 GM/DL (3.2-4.5); INR 0.9 (0.8-1.4); PROTHROMBIN TIME PATIENT 12.6 SEC (12.2-14.7); TOTAL PROTEIN 7.1 GM/DL (6.4-8.2)
[2020-03-10 23:35] LABS: FIBRIN DEGRADATION PRODUCTS 0.51 UG/ML (0.00-0.49)
[2020-03-11] VITALS (13 sets, daily range): BP systolic 102–148; BP diastolic 64–99
--- NOTE | 2020-03-11 00:04 | NUR ---
Shaheen at [facility] contacted about transfer to [place]. He stated he would wait until the other ambulance gets back from and then will be up to take the transfer.
--- NOTE | 2020-03-11 00:15 | NUR ---
EMS arrived for transfer.
--- NOTE | 2020-03-11 00:21 | NUR ---
Pt transferred and left out the door with [facility] [place].
--- NOTE | 2020-03-11 00:26 | NUR ---
This RN attempted to call report and was told RN was in covid room and would have to call me back.
--- NOTE | 2020-03-11 00:40 | NUR ---
This RN called report to FERNANDA Sidhu
[2020-03-11] MEDS ORDERED: polyethylene glycoL POWDER 17 GM (MIRALAX) PACK PO PRN (01:00)
[2020-03-11] MEDS ORDERED: DOCUSATE SODIUM 100 MG (COLACE) CAP PO PRN (01:00)
[2020-03-11] MEDS ORDERED: guaiFENesin/DM (ROBITUSSIN DM) 10 ML UDC PO PRN (01:00)
[2020-03-11] MEDS ORDERED: ONDANSETRON 4 MG/2 ML (SDV) Z0FRAN IVP PRN (01:00)
[2020-03-11] MEDS ORDERED: diphenhydrAMINE 25 MG TAB (BENADRYL) PO PRN (01:00)
[2020-03-11] MEDS ORDERED: IBUPROFEN TABLET 200 MG TAB PO PRN (01:00)
[2020-03-11] MEDS ORDERED: ACETAMINOPHEN 325 MG TABLET PO PRN (01:00)
[2020-03-11] MEDS ORDERED: ALPRAZolam 0.25 MG (XANAX) TAB PO PRN (01:00)
[2020-03-11] MEDS ORDERED: MELATONIN 10 MG TABLET PO PRN (01:00)
[2020-03-11] MEDS ORDERED: fentaNYL INJECTION 100 MCG/2 ML AMP IVP PRN (01:00)
[2020-03-11] MEDS ORDERED: morphine INJ 4 MG/ML 1 ML (VIAL/SYRINGE) IV PRN (01:30)
[2020-03-11 04:32] LABS: BASOPHILS % (AUTO) 1 % (0-10); EOSINOPHILS # (AUTO) 0.2 10^3/uL (0.0-0.3); EOSINOPHILS % (AUTO) 3 % (0-10); HEMATOCRIT 34 % (35-52); HEMOGLOBIN 10.9 G/DL (11.5-16.0); LYMPHOCYTES # (AUTO) 1.8 X 10^3 (1.0-4.0); LYMPHOCYTES % (AUTO) 21 % (12-44); MEAN CORPUSCULAR HGB CONC 32 G/DL (32-36); MEAN CORPUSCULAR VOLUME 90 FL (80-99); MEAN PLATELET VOLUME 9.2 FL (7.4-10.4); MONOCYTES # (AUTO) 0.9 X 10^3 (0.0-1.0); MONOCYTES % (AUTO) 10 % (0-12); NEUTROPHILS # (AUTO) 5.8 X 10^3 (1.8-7.8); NEUTROPHILS % (AUTO) 66 % (42-75); PLATELET COUNT 302 10^3/uL (130-400); WHITE BLOOD COUNT 8.7 10^3/uL (4.3-11.0)
[2020-03-11 04:37] LABS: MEAN CORPUSCULAR HEMOGLOBIN 28 PG (25-34)
[2020-03-11 04:43] LABS: ALBUMIN 3.8 GM/DL (3.2-4.5); CHLORIDE 107 MMOL/L (98-107); POTASSIUM 4.4 MMOL/L (3.6-5.0); SODIUM 139 MMOL/L (135-145)
[2020-03-11 04:44] LABS: CALCIUM 9.7 MG/DL (8.5-10.1)
[2020-03-11 04:45] LABS: GLUCOSE 103 MG/DL (70-105)
[2020-03-11 04:46] LABS: TOTAL PROTEIN 6.7 GM/DL (6.4-8.2)
[2020-03-11 04:47] LABS: BILIRUBIN,TOTAL 0.3 MG/DL (0.1-1.0); CARBON DIOXIDE 23 MMOL/L (21-32)
[2020-03-11 04:49] LABS: ALKALINE PHOSPHATASE 94 U/L (40-136); CREATININE SERUM 1.22 MG/DL (0.60-1.30); GFR ESTIMATED 44
[2020-03-11 04:50] LABS: BUN/CREATININE RATIO 26
[2020-03-11 04:52] LABS: ALANINE AMINOTRANSFERASE 11 U/L (0-55)
--- NOTE | 2020-03-11 07:40 | Diagnostic Imaging Report ---
INDICATION: Chest pain COMPARISON: 09/18/2018 FINDINGS: Single view of the chest demonstrates slight cardiac enlargement. There is subsegmental atelectasis in the left base. The right lung is clear. There is no pneumothorax. No large effusion seen. Osseous structures are stable. Chronic left clavicle fracture is noted. IMPRESSION: Subsegmental atelectasis left base. Dictated by: Dictated on workstation # [id number]
[2020-03-11] MEDS: ENOXAPARIN 40 MG/0.4 ML (LOVENOX) SYR SC SCH (08:22)
--- NOTE | 2020-03-11 11:33 | History & Physical-Hospitalist ---
OMAR ZARATE MED STUDENT 03/11/20 1133: History of Present Illness HPI/Chief Complaint Chest pain Source: patient Exam Limitations: other (Lack of dentures) Date Seen 03/11/20 Attending Physician Radha Simms DO [facility] Referring Physician Date of Admission Mar 10, 2020 at 23:10 Home Medications & Allergies Home Medications Reviewed patient Home Medication Reconciliation performed by pharmacy medication reconciliations body technician and/or nursing. Patients Allergies have been reviewed. Allergies Allergies Coded Allergies strawberry (Unverified Allergy, Severe, HIVES, 08/15/17) Penicillins (Unverified Allergy, Unknown, RASH, 08/15/17) Past Nidumsv-Nxqzvv-Gswlpv Hx Past Med/Social Hx: Reviewed Nursing Past Med/Soc Hx Patient Social History Marrital Status: Number of Children: 4 Number of living children: 1 Living Status: living with son and daughter in law Employed/Student: retired Alcohol Use: Past History Alcohol Beverage of Choice: Beer Recreational Drug Use: No Smoking Status: Former Smoker Cigaretts per day: 3 Former Smoker, Quit: Dec 02, 2017 Type Used: Cigarettes 2nd Hand Smoke Exposure: No Physical Abuse Screen: Yes Sexual Abuse: No Recent Foreign Travel: No Contact w/other who traveled: No Recent Hopitalizations: No Recent Infectious Disease Expo: No Immunizations Up To Date Tetanus Booster (TDap): Unknown Pediatric: Yes Date of Pneumonia Vaccine: Mar 12, 2019 Seasonal Allergies Seasonal Allergies: Yes Past Medical History Ankle fracture surgery & Neck abscess removal Respiratory: Asthma, Chronic Bronchitis, COPD, Emphysema Currently Using CPAP: No Currently Using BIPAP: No Cardiac: High Cholesterol Heart Failure Neurological: Headaches /Migraines : No Hx : 4 Hx Para: 4 Hx Total # of Abortions(Spont): 0 Reproductive: No Sexually Transmitted Disease: No HIV/AIDS: No Female Reproductive Disorders: Denies Menopausal Incontinence Musculoskeletal: Osteoporosis, Arthritis HEENT: Cataract Loss of Vision: Denies 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) Psychosocial: Anxiety, Depression History of Blood Disorders: No Family History Reviewed Nursing Family Hx Mother passed of CHF at 81 Father passed of CHF at 85 Review of Systems Constitutional: No no symptoms reported, No see HPI, No chills, No diaphoresis, No dizziness, No fever, No malaise, No weakness, No weight gain, No weight loss, No other EENTM: hearing loss; No see HPI, No no symptoms reported, No ear discharge, No ear pain, No blurred vision, No double vision, No eye pain, No tearing, No vision loss, No dental problems, No hoarseness, No mouth pain, No mouth swelling, No epistaxis, No nose congestion, No nose pain, No throat pain, No throat swelling, No other Respiratory: No no symptoms reported, No see HPI, No cough; dyspnea on exertion; No hemoptysis, No orthopnea, No phlegm; short of breath; No stridor, No wheezing, No other Cardiovascular: No no symptoms reported; see HPI, chest pain; No edema, No Hx of Intervention, No palpitations, No syncope, No vascular heart diseas, No other Gastrointestinal: No RUQ, No LUQ, No RLQ, No LLQ, No no symptoms reported, No see HPI, No abdominal pain, No constipation, No diarrhea, No dysphagia, No hematemesis, No heartburn, No jaundice, No loss of appetite, No melena, No nausea, No vomiting, No other Genitourinary: No no symptoms reported, No see HPI, No decreased output, No discharge, No dysuria, No frequency, No hematuria, No hesitancy; incontinence; No nocturia, No pain, No other : No Musculoskeletal: No no symptoms reported, No see HPI, No back pain, No gout, No joint pain, No joint swelling, No muscle pain; muscle stiffness (Bilateral LE), muscle cramps (Bilateral LE); No muscle twitching, No muscle weakness, No neck pain, No other Skin: No no symptoms reported, No see HPI, No change in color, No change in hair/nails, No dryness, No hx of skin cancer, No lesions, No lumps, No pruritus, No rash, No other Psychiatric/Neurological: Denies No Symptoms Reported, Denies See HPI, Denies Anxiety, Denies Depressed, Denies Emotional Problems, Denies Headache, Denies Numbness, Denies Paresthesia, Denies Pre-Existing Deficit, Denies Seizure, Denies Tingling, Denies Tremors, Denies Weakness, Denies Other All Other Systems Reviewed Negative Unless Noted: Yes Physical Exam Physical Exam Vital Signs Vital Signs - First Documented 03/11/20 00:21 O2 Flow Rate 2.00 Capillary Refill : Less Than 3 Seconds Height, Weight, BMI Height: 5'7.00" Weight: 165lbs. 4.0oz. 72.101001bf; 27.83 BMI Method:Stated General Appearance: No Apparent Distress, Chronically ill Eyes: Bilateral Eye Normal Inspection, Bilateral Eye PERRL, Bilateral Eye EOMI HEENT: PERRL/EOMI, Pharynx Normal Neck: Full Range of Motion, Normal Inspection, Non Tender, Supple Respiratory: Chest Non Tender, Accessory Muscle Use Cardiovascular: Regular Rate, Rhythm, No Edema, No Gallop, No Murmur Gastrointestinal: Normal Bowel Sounds, No Organomegaly, No Pulsatile Mass, Non Tender, Soft Back: No CVA Tenderness, No Vertebral Tenderness Extremity: Normal Capillary Refill, Normal Inspection, Normal Range of Motion, Non Tender, Pedal Edema Neurologic/Psychiatric: Alert, No Motor/Sensory Deficits, Normal Mood/Affect, research specialist II-XII Norm as Tested Reflexes: 1+ Bicep (R), 1+ Bicep (L), 1+ Ankle (R), 1+ Ankle (L) Skin: Normal Color, Warm/Dry Results Results/Procedures Labs Laboratory Tests 03/10/20 22:30 03/11/20 04:08 Patient resulted labs reviewed. Assessment/Plan Assessment and Plan ASSESSMENT: CHF exacerbation Emphysema CAD Hypercholesterolemia PLAN: Diuretics Observation Breathing treatment Sodium & fluid restriction Clinical Quality Measures AMI/AHF: ASA po Prior to arrival: No DVT/VTE Risk/Contraindication: Risk Factor Score Per Nursin RFS Level Per Nursing on Admit: 3=High RADHA SIMMS DO 03/11/202127: History of Present Illness HPI/Chief Complaint CC: Chest pain HPI: This is a 70yoWF former smoker quit two years ago with a PMH of CAD and COPD oxygen dependent on two liters at night who presented to the ER with SOB and chest pain. She was found to be in need of rule out of acute coronary syndrome. She was placed on Oxygen for supportive care and cardiology has been consulted to evaluate risk stratification. Echocardiogram will be ordered due to pt reporting that her heart is weak and [facility] could not do anything more for her one year ago. Exam Limitations: no limitations Time Seen by a Provider: 10:00 Past Rbswqch-Ctctnr-Tqhely Hx Past Med/Social Hx: Reviewed Nursing Past Med/Soc Hx, Reviewed and Corrections made Patient Social History Alcohol Use: Denies Use Smoking Status: Former Smoker Past Medical History Cardiac: Cardiomyopathy, Coronary Artery Disease, High Cholesterol, Hypertensi on Review of Systems Constitutional: see HPI Cardiovascular: chest pain Physical Exam Physical Exam General Appearance: No Apparent Distress, Chronically ill Respiratory: Lungs Clear Cardiovascular: Regular Rate, Rhythm Assessment/Plan Admission Diagnosis Assessment: CP CAD CHF Former smoker COPD O2 dependence Plan: Cardiology evaluation Monitor closely Admission Status: Observation Diagnosis/Problems Diagnosis/Problems (1) Other chest pain Status: Acute Supervisory-Addendum Brief Verification & Attestation Participated in pt care: history, MDM, physical Personally performed: exam, history, MDM, supervision of care Care discussed with: Medical Student Procedures: n/a Results interpretation: Verified all documentation Verification and Attestation of Medical Student E/M Service A medical student performed and documented this service in my presence. I revie wed and verified all information documented by the medical student and made modifications to such information, when appropriate. I personally performed the physical exam and medical decision making. Radha Simms, Mar 11, 2020,21:28 OMAR ZARATE MED STUDENT Mar 11, 2020 11:33 RADHA SIMMS DO Mar 11, 2020 21:28
[2020-03-11] MEDS ORDERED: SPIR25TA5 PO (13:06)
[2020-03-11] MEDS ORDERED: FLUO20CA46 PO (13:06)
[2020-03-11] MEDS ORDERED: CARV6.252 PO (13:06)
[2020-03-11] MEDS ORDERED: LISI2.5T PO (13:06)
[2020-03-11] MEDS ORDERED: ASCO100024 PO (13:06)
[2020-03-11] MEDS ORDERED: CETI10TA17 PO (13:06)
[2020-03-11] MEDS ORDERED: CLC600T PO (13:06)
[2020-03-11] MEDS ORDERED: OMEP40CA27 PO (13:06)
[2020-03-11] MEDS ORDERED: MONT10TA26 PO (13:06)
[2020-03-11] MEDS ORDERED: CYCL5TAB PO (13:06)
[2020-03-11] MEDS ORDERED: ATOR10TA66 PO (13:06)
--- NOTE | 2020-03-11 13:07 | NUR ---
SPOKE WITH THE PT- SHE SUGGESTED I CALL HER DAUGHTER VLADIMIR SMALLS SINCE SHE TAKES CARE OF HER MEDS. I CALLED VLADIMIR SMALLS AND WENT THRU THE EXT MED HISTORY TO COMPLETE THE MED REC ACCORDING TO VLADIMIR RIOS THE PT ONLY TAKES COREG 6.25MG 1 TAB HS INSTEAD OF THE 1 TAB BID HOW IT IS PRESCRIBED ALL OTHER MEDICATIONS THE PT TAKES PRESCRIBED OTC MEDS: CALCIUM VITAMIN C
--- NOTE | 2020-03-11 15:24 | Consultation-Cardiology ---
HPI-Cardiology Cardiology Consultation: Date of Consultation 03/11/20 Date of Admission Attending Physician Radha Simms DO Admitting Physician [place] Consulting Physician Margarita NUNEZ MD HPI: Time Seen by a Provider: 12:20 Chief Complaint: Chest pain This is 70-year-old lady with history of hypertension and hyperlipidemia. No clear history of coronary disease. Previous history of possible heart failure on Lasix. COPD, oxygen dependent. Presents with acute onset substernal chest pain. Sharp. 02/10. Improved with sublingual nitroglycerin. No other associa ashley cardiac symptoms. No exacerbating factors. Denies active smoking. Pertinent family history is negative. Review of Systems-Cardiology Review of Systems Constitutional: As described under HPI; No As described under HPI, No no symptoms reported, No chills, No fever, No lightheadedness Eyes: No As described under HPI, No no symptoms reported, No blindness, No blurred vision, No contact lenses, No drainage, No decreased acuity, No foreign body sensation, No pain, No vision change Ears/Nose/Throat: No As described under HPI, No no symptoms reported, No chronic hearing loss, No ear discharge, No ear pain, No nasal drainage, No ulcerations Respiratory: No no symptoms reported; As described under HPI; No As described under HPI, No cough, No orthopnea, No shortness of breath, No SOB with excertion Cardiovascular: No no symptoms reported; As described under HPI; No As described under HPI; chest pain; No edema, No irregular heart rate, No lightheadedness, No palpitations Gastrointestinal: No no symptoms reported, No As described under HPI, No abdomen distended, No abdominal pain, No blood streaked bowels, No constipation, No diarrhea, No nausea, No vomiting, No stool coloration changes Genitourinary: No As described under HPI, No burning, No dysuria, No discharge, No frequency, No flank pain, No hematuria, No urgency : No Skin: No rash, No skin related problems, No ulcerations Psychiatric/Neurological: No anxiety, No depression, No seizure, No focal weakness, No syncope Hematologic: No bleeding abnormalities All Other Systems Reviewed Negative Unless Noted: Yes QVA-Ponwbs-Hdwdls Hx Patient Social History Marrital Status: Number of Children: 4 Number of living children: 1 Living Status: living with son and daughter in law Employed/Student: retired Alcohol Use: Past History Recreational Drug Use: No Smoking Status: Former Smoker Cigaretts per day: 3 Type Used: Cigarettes 2nd Hand Smoke Exposure: No Recent Foreign Travel: No Recent Infectious Disease Expo: No Hospitalization with Isolation: Denies Physical Abuse Screen: Yes Sexual Abuse: No Immunizations Up To Date Tetanus Booster (TDap): Unknown Date of Pneumonia Vaccine: Mar 12, 2019 Past Medical History PMH As described under Assessment. Allergies and Home Medications Allergies Coded Allergies: strawberry (Unverified Allergy, Severe, HIVES, 08/15/17) Penicillins (Unverified Allergy, Unknown, RASH, 08/15/17) Home Medications Ascorbic Acid 1,000 Mg Tablet, 1,000 MG PO DAILY, (Reported) Atorvastatin Calcium 10 Mg Tablet, 10 MG PO HS, (Reported) Calcium Carbonate 600 Mg Tablet, 600 MG PO DAILY, (Reported) Carvedilol 6.25 Mg Tablet, 6.25 MG PO HS, (Reported) Cetirizine HCl 10 Mg Tablet, 10 MG PO HS, (Reported) Cyclobenzaprine HCl 5 Mg Tablet, 5 MG PO BID PRN for MUSCLE SPASMS, (Reported) Fluoxetine HCl 20 Mg Capsule, 20 MG PO DAILY, (Reported) Lisinopril 2.5 Mg Tablet, 2.5 MG PO DAILY, (Reported) Montelukast Sodium 10 Mg Tablet, 10 MG PO HS, (Reported) Omeprazole 40 Mg Capsule.dr, 40 MG PO DAILY, (Reported) Spironolactone 25 Mg Tablet, 25 MG PO DAILY, (Reported) Patient Home Medication List Home Medication List Reviewed: Yes Physical Exam-Cardiology Physical Exam Vital Signs/I&O 03/11/20 03/11/20 03/11/20 03/11/20 03:55 04:00 04:55 06:46 Temp 36.7 Pulse 73 77 73 B/P (MAP) 112/67 (82) 117/79 (92) Pulse Ox 99 99 O2 Delivery Nasal Cannula O2 Flow Rate 3.00 03/11/20 03/11/20 03/11/20 03/11/20 07:51 08:00 09:00 12:00 Temp 35.9 Pulse 80 Resp 18 B/P (MAP) 113/70 (84) Pulse Ox 96 O2 Delivery Nasal Cannula Room Air Room Air O2 Flow Rate 3.00 03/11/20 03/11/20 12:00 12:43 Temp 36.4 Pulse 80 97 Resp 18 B/P (MAP) 110/66 (81) Pulse Ox 90 Capillary Refill : Less Than 3 Seconds Constitutional: appears stated age, AAO x 3; No apparent distress; well- developed, well-nourished HEENT: PERRL; No discharge; hearing is well preserved, oral hygience is good; No ulceration, No xanthelasmas are seen Neck: No carotid bruit; carotid pulses are 2 + bilaterally Respiratory: chest is bilaterally symmetric, lungs clear to auscultation Cardiovascular: regular rate-rhythm, S1 and S2; No diastolic murmur, No systolic murmur Gastrointestinal: soft, audible bowel sounds; No spleenomegaly Rectal: deferred Extremities: normal range of motion, non-tender, normal inspection; No clubbing, No cyanosis; no lower extremity edema bilateral; No significant edema Neurologic/Psychiatric: no motor/sensory deficits, alert, normal mood/affect, oriented x 3, power is 5/5 both on sides Skin: normal color, warm/dry; No rash, No ulcerations Data Review Labs Laboratory Tests 03/10/20 22:30: White Blood Count 9.6, Red Blood Count 3.93L, Hemoglobin 11.5, Hematocrit 35, Mean Corpuscular Volume 88, Mean Corpuscular Hemoglobin 29, Mean Corpuscular Hemoglobin Concent 33, Red Cell Distribution Width 13.2, Platelet Count 326, Mean Platelet Volume 9.3, Neutrophils (%) (Auto) 64, Lymphocytes (%) (Auto) 22, Monocytes (%) (Auto) 10, Eosinophils (%) (Auto) 3, Basophils (%) (Auto) 1, Neutrophils # (Auto) 6.2, Lymphocytes # (Auto) 2.2, Monocytes # (Auto) 0.9, Eosinophils # (Auto) 0.3, Basophils # (Auto) 0.1, Prothrombin Time 12.6, INR Comment 0.9, Activated Partial Thromboplast Time 27, D-Dimer 0.51H, Sodium Level 142, Potassium Level 4.0, Chloride Level 104, Carbon Dioxide Level 26, Anion Gap 12, Blood Urea Nitrogen 22H, Creatinine 1.19, Estimat Glomerular Filtration Rate 45, BUN/Creatinine Ratio 18, Glucose Level 116H, Calcium Level 10.3H, Corrected Calcium 10.2H, Total Bilirubin 0.2, Aspartate Amino Transf (AST/SGOT) 17, Alanine Aminotransferase (ALT/SGPT) 13, Alkaline Phosphatase 112, Troponin I < 0.30, Pro-B-Type Natriuretic Peptide 101.5H, Total Protein 7.1, Albumin 4.1 03/11/20 04:08: White Blood Count 8.7, Red Blood Count 3.83L, Hemoglobin 10.9L, Hematocrit 34L, Mean Corpuscular Volume 90, Mean Corpuscular Hemoglobin 28, Mean Corpuscular Hemoglobin Concent 32, Red Cell Distribution Width 13.6, Platelet Count 302, Mean Platelet Volume 9.2, Neutrophils (%) (Auto) 66, Lymphocytes (%) (Auto) 21, Monocytes (%) (Auto) 10, Eosinophils (%) (Auto) 3, Basophils (%) (Auto) 1, Neutrophils # (Auto) 5.8, Lymphocytes # (Auto) 1.8, Monocytes # (Auto) 0.9, Eosinophils # (Auto) 0.2, Basophils # (Auto) 0.0, Sodium Level 139, Potassium Level 4.4, Chloride Level 107, Carbon Dioxide Level 23, Anion Gap 9, Blood Urea Nitrogen 32H, Creatinine 1.22, Estimat Glomerular Filtration Rate 44, BUN/Creatinine Ratio 26, Glucose Level 103, Calcium Level 9.7, Corrected Calcium 9.9, Total Bilirubin 0.3, Aspartate Amino Transf (AST/SGOT) 18, Alanine Aminotransferase (ALT/SGPT) 11, Alkaline Phosphatase 94, Troponin I < 0.028, Total Protein 6.7, Albumin 3.8 03/11/20 10:49: Troponin I < 0.028 ECG Impression ECG Initial ECG Rhythm: S.Tach Initial ECG Impression: Nonspecific Changes A/P-Cardiology Assessment/Admission Diagnosis Chest pain, Hypertension, Hyperlipidemia, Oxygen dependent COPD, Mildly elevated proBNP, Sinus tachycardia. Plan Chest pain, serial troponin negative. Recommend echocardiogram and nuclear stress testing. Hypertension, outpatient medical therapy. Hyperlipidemia, continue Lipitor. Oxygen dependent COPD, defer to the primary team. Mildly elevated proBNP, check echo. Not in florid congestive heart failure. Sinus tachycardia. Likely due to respiratory failure. Thank you for your consultation. Please call me if you have any questions. Sachin Nunez MD, FACP, FACC, FSCAI, FHRS, CCDS Interventional Cardiology Cardiac Electrophysiology Vascular Medicine and Endovascular Interventions Clinical Quality Measures AMI/AHF: ASA po Prior to arrival: No DVT/VTE Risk/Contraindication: Risk Factor Score Per Nursin RFS Level Per Nursing on Admit: 3=High Margarita NUNEZ MD Mar 11, 2020 15:24
[2020-03-11] MEDS ORDERED: CALCIUM CARBONATE 500 MG (TUMS) TAB.CHEW ONE (18:21)
[2020-03-11] MEDS ORDERED: CALCIUM CARBONATE 500 MG (TUMS) TAB.CHEW PO PRN (18:30)
[2020-03-12] VITALS: BP 114/73
[2020-03-12 04:05] VITALS: BP 120/70
[2020-03-12] MEDS: ENOXAPARIN 40 MG/0.4 ML (LOVENOX) SYR SC SCH (07:56)
[2020-03-12 08:00] VITALS: BP 127/87
[2020-03-12] MEDS ORDERED: fentaNYL INJECTION 100 MCG/2 ML AMP IVP PRN (08:45)
[2020-03-12] MEDS ORDERED: REGADENOSON 0.4 MG/5 ML SYR (LEXISCAN) IV ONE ×2 (10:19→10:30)
--- NOTE | 2020-03-12 10:36 | Discharge Summary ---
Discharge Summary Hospital Course Was the Problem List Reviewed?: Yes Problems/Dx: (1) Other chest pain Status: Acute Hospital Course Date of Admission: Mar 10, 2020 at 23:10 Admission Diagnosis : Family Physician/Provider: Oumou Cortés Aprn Date of Discharge: 03/12/20 Discharge Diagnosis: chest pain, copd o2 dependence Hospital Course: Hospital course: Pt had an uneventful hospital course, she was admitted for chest pain, known history of heart disease and Oxygen-dependent COPD, cardiology evaluated her, echocardiogram showed pulmonary hypertension and normal EF, she did undergo stress test, cardiology evaluated her to have no significant reversible ischemia so she was discharged in improved and stable condition. Labs and Pending Lab Test: Laboratory Tests 03/11/20 10:49: Troponin I < 0.028 03/11/20 16:40: Troponin I < 0.028 03/12/20 05:08: Triglycerides Level 82, Cholesterol Level 153, LDL Cholesterol Direct 107, VLDL Cholesterol 16, HDL Cholesterol 43, Thyroid Stimulating Hormone (TSH) 1.91 Home Meds Active Reported Vitamin C (Ascorbic Acid) 1,000 Mg Tablet 1,000 Mg PO DAILY Calcium (Calcium Carbonate) 600 Mg Tablet 600 Mg PO DAILY Montelukast Sodium 10 Mg Tablet 10 Mg PO HS Cetirizine HCl 10 Mg Tablet 10 Mg PO HS Carvedilol 6.25 Mg Tablet 6.25 Mg PO HS Cyclobenzaprine HCl 5 Mg Tablet 5 Mg PO BID PRN Spironolactone 25 Mg Tablet 25 Mg PO DAILY Lisinopril 2.5 Mg Tablet 2.5 Mg PO DAILY Fluoxetine HCl 20 Mg Capsule 20 Mg PO DAILY Omeprazole 40 Mg Capsule.dr 40 Mg PO DAILY Atorvastatin Calcium 10 Mg Tablet 10 Mg PO HS Assessment/Pt Instructions CHC 1 week Discharge Planning: <30 minutes discharge planning Discharge Instructions Discharge Diet: No Restrictions Discharge Physical Examination Vital Signs Vital Signs Date Time Temp Pulse Resp B/P (MAP) Pulse Ox O2 Delivery O2 Flow Rate FiO2 03/12/20 08:45 Room Air 03/12/20 08:00 36.6 96 16 127/87 (100) 94 03/11/20 08:00 3.00 General Appearance: No Apparent Distress, WD/WN, Chronically ill Respiratory: Chest Non Tender, Lungs Clear, Normal Breath Sounds, No Accessory Muscle Use, No Respiratory Distress, Decreased Breath Sounds Allergies: Coded Allergies: strawberry (Unverified Allergy, Severe, HIVES, 2/12/18) Penicillins (Unverified Allergy, Unknown, RASH, 08/15/17) Discharge Summary Date of Admission Mar 10, 2020 at 23:10 Date of Discharge Discharge Date: Mar 12, 2020 Admission Diagnosis Assessment: CP CAD CHF Former smoker COPD O2 dependence Plan: Cardiology evaluation Monitor closely Discharge Diagnosis (1) Other chest pain Status: Acute Clinical Quality Measures AMI/AHF: ASA po Prior to arrival: No DVT/VTE Risk/Contraindication: Risk Factor Score Per Nursin RFS Level Per Nursing on Admit: 3=High TRUONG CHAPMAN DO Mar 12, 2020 10:36
--- NOTE | 2020-03-12 11:39 | Cardiology Stress Test Report ---
Stress Test Report Date of Procedure/Referring: Date of Procedure: Mar 12, 2020 PCP Radha Simms DO Admitting Physician [facility] Indications: Chest pain Baseline Heart Rate: 94 Baseline Blood Pressure: Blood Pressure Systolic: 127 Blood Pressure Diastolic: 87 Baseline Vitals Vital Signs Date Time Temp Pulse Resp B/P (MAP) Pulse Ox O2 Delivery O2 Flow Rate FiO2 03/10/20 22:17 36.7 107 17 142/90 (107) 95 Room Air 03/11/20 00:21 2.00 Baseline EKG: Baseline EKG: normal sinus rhythm Summary After explaining the procedure to the patient, she signed a consent and then brought to the stress nuclear laboratory. Patient received 0.4 mg Lexiscan for stress test, ECG, heart rate and blood pressure were monitored continuously. Resting and stress dose of radio tracer were injected, imaging was acquired and reviewed in short axis, horizontal long axis and vertical long axis views. TID: 1.13 SSS: 7 SDS: 4 EF: 56 1. Patient tolerated Lexiscan well 2. Decreased uptake at the base of the anterior septum with mild reversibility, there is no significant ischemia or infarction on SPECT images 3. Normal left ventricular size, systolic function is in the lower normal limits, EF 56 percent MERA MARQUEZ MD Mar 12, 2020 11:39
--- NOTE | 2020-03-12 11:47 | Cardiology Progress Note ---
Subjective Date Seen by Provider: Mar 12, 2020 Time Seen by Provider: 10:15 Subjective/Events-last exam Patient down in heart center for stress test. Denies any chest pain or dyspnea. Reports she is feeling better. Review of Systems General: No Chills, No Night Sweats, No Fatigue, No Malaise, No Appetite, No Other HEENT: No Head Aches, No Visual Changes, No Eye Pain, No Ear Pain, No Dysphasia, No Sinus Congestion, No Post Nasal Drip, No Sore Throat, No Other Pulmonary: No Dyspnea, No Cough, No Pleuritic Chest Pain, No Other Cardiovascular: No: Chest Pain, Palpitations, Orthopnea, Paroxysmal Noc. Dyspnea, Edema, Lt Headedness, Other Objective-Cardiology Exam Last Set of Vital Signs Vital Signs 03/12/20 12:27 Temp 36.8 Pulse 82 Resp 16 B/P (MAP) 122/74 Pulse Ox 94 O2 Delivery Room Air O2 Flow Rate 3.00 Capillary Refill : Less Than 3 Seconds I&O Intake and Output 03/12/20 00:00 Intake Total 600 ml Balance 600 ml Intake Oral 600 ml # Voids 4 Daily Weight Change No General: Alert, Oriented X3, Cooperative HEENT: Atraumatic, PERRLA Neck: Supple, No JVD, No Thyromegaly Lungs: Clear to Auscultation, Normal Air Movement Heart: Regular Rate, Normal S1, Normal S2, No Murmurs Abdomen: Normal Bowel Sounds, Soft, No Tenderness, No Hepatosplenomegaly, No Masses Extremities: No Clubbing, No Cyanosis, No Edema, Normal Pulses, No Tenderness/Swelling Skin: No Rashes, No Breakdown, No Significant Lesion Neuro: Normal Gait, Normal Speech, Strength at 5/5 X4 Ext, Normal Tone, Sensation Intact Psych/Mental Status: Mental Status NL, Mood NL Results Lab Laboratory Tests Test 03/11/20 16:40 03/12/20 05:08 Range/Units Troponin I < 0.028 <0.028 NG/ML Triglycerides Level 82 <150 MG/DL Cholesterol Level 153 < 200 MG/DL LDL Cholesterol Direct 107 1-129 MG/DL VLDL Cholesterol 16 5-40 MG/DL HDL Cholesterol 43 40-60 MG/DL Thyroid Stimulating Hormone (TSH) 1.91 0.35-4.94 UIU/ML A/P-Cardiology Admission Diagnosis Chest pain Diastolic dysfunction Dyspnea HTN Assessment/Plan Chest pain, serial troponin negative. EKG revealed no acute ST changes. Stress test done this morning negative for ischemia or infarct. Unlikely to be cardiac in nature Dyspnea, improved. Mildly elevated BNP on admission. 2D Echo done 03/11/2020 showed EF 60% with grade I diastolic dysfunction. Hypertension, controlled, continue to monitor Hyperlipidemia, continue Lipitor. Continue to monitor COPD, patient uses O2 at night. Management per medical services. OK to discharge from cardiology standpoint. F/u in 4 weeks. Patient was seen and evaluated with Zenaida, examination performed, management plan was discussed, agree with the current scribed note, I made few changes to the note using Italic font Patient was seen and evaluated with Zenaida, has been feeling better, reporting improvement chest pain Lungs were clear to auscultation, heart is regular Stress test showed no significant ischemia or infarction Discussed the management plan and okay for discharge and follow-up as an outpat ient Clinical Quality Measures AMI/AHF: ASA po Prior to arrival: No DVT/VTE Risk/Contraindication: Risk Factor Score Per Nursin RFS Level Per Nursing on Admit: 3=High ZENAIDA EDWARDS Mar 12, 2020 11:47 MERA MARQUEZ MD Mar 12, 2020 15:05
[2020-03-12 12:00] VITALS: BP 122/74
[2020-03-12 12:27] VITALS: BP 122/74
== END 2020-03-12 12:30 | disposition home or self-care (01) ==
LOC: EDUNIT# 22:17 → ER FS 22:18 → CSD 23:10
PROVIDERS: ADMIT Internal Medicine; ATTEND Internal Medicine
DX: R07.89 Other chest pain (principal); I25.10 Atherosclerotic heart disease of native coronary artery without angina pectoris; I11.0 Hypertensive heart disease with heart failure; I50.9 Heart failure, unspecified; E78.5 Hyperlipidemia, unspecified; J96.10 Chronic respiratory failure, unspecified whether with hypoxia or hypercapnia; J43.9 Emphysema, unspecified; E78.00 Pure hypercholesterolemia, unspecified; G43.909 Migraine, unspecified, not intractable, without status migrainosus; F41.9 Anxiety disorder, unspecified; F32.9 Major depressive disorder, single episode, unspecified; Z79.82 Long term (current) use of aspirin; Z79.899 Other long term (current) drug therapy; Z88.0 Allergy status to penicillin; Z91.018 Allergy to other foods; Z87.891 Personal history of nicotine dependence
CPT/HCPCS: 36415; 71045; 78452; 80053 ×2; 80061; 83880; 84443; 84484 ×2; 85025 ×2; 85379; 85610; 85730; 93005 ×3; 93017; 93306; 99284; A9502; G0378

== ENCOUNTER → 2020-05-20 | Outpatient (CLI) | payer MEDICARE, MEDICAID ==
[~2020-05-20] MED LIST changes: +ASCO100024 PO; +ATOR10TA66 PO; +CARV6.252 PO; -CATHETER FLUSH 10 ML SYR IV PRN; +CETI10TA17 PO; +CLC600T PO; +CYCL5TAB PO; +FLUO20CA46 PO; -HOLD METFORMIN - RECEIVED CONTRAST 20 ML VIAL IV SCH; -IOHEXOL 350 MG/ML 100 ML (OMNIPAQUE 350) VIAL IV ONE; +LISI2.5T PO; +MONT10TA26 PO; -NS 100 ML (IVPB) BAG IV ONE; +OMEP40CA27 PO; +SPIR25TA5 PO
--- NOTE | 2020-05-20 13:08 | Diagnostic Imaging Report ---
INDICATION: Asymptomatic postmenopausal female. COMPARISON: None. FINDINGS: AP Spine L1-L4: [BMD (g/cm2): 0.805] [T-Score: -3.3] [Z-Score: -1.9] LT Hip Neck: [BMD (g/cm2): 0.750] [T-Score: -2.1] [Z-Score: -0.5] LT Hip Total: [BMD (g/cm2):0.743] [T-Score:-2.1] [Z-Score: -0.8] RT Hip Neck: [BMD (g/cm2):0.706] [T-Score:-2.4] [Z-Score:-0.9] RT Hip Total: [BMD (g/cm2):0.753] [T-score:-2.0] [Z-Score:-0.7] *Indicates significant change from prior examination based on 95% confidence level. World Health Organization criteria for BMD interpretation classify patients as Normal (T-score at or above -1.0), Osteopenic (T-score between -1.0 and -2.5) or Osteoporotic (T-score at or below -2.5). LIMITATIONS AND MODIFICATION: None. FRACTURE RISK (FRAX SCORE): The ten year probability of (%): Major Osteoporotic Fracture: [14.4] Hip Fracture: [3.6] IMPRESSION: 1. Osteoporosis. 2. Baseline examination. 3. See below National Osteoporosis Foundation guidelines on when to potentially initiate pharmacologic therapy. Based on the National Osteoporosis Foundation Guidelines, pharmacologic treatment should be initiated in any of the following, unless clinical conditions suggest otherwise: * Any patient with prior fragility fracture of the hip or vertebrae. A spine fracture indicates 5X risk for subsequent spine fracture and 2X risk for subsequent hip fracture. * Osteoporosis (T-score <-2.5). * Postmenopausal women and men age 50 and older with low bone mass/osteopenia (T-score between -1.0 and -2.5) by DXA and 10-year major osteoporotic fracture greater than 20% or a 10-year probability of hip fracture greater than 3%. These fracture risks are supplied above in the FRAX score, if applicable. * Clinician judgement and/or patient preferences may indicate treatment for people with 10-year fracture probabilities above or below these levels. Dictated by: Dictated on workstation # [id number]
== END ==
LOC: RAD 10:44
PROVIDERS: ATTEND Nurse Practitioner Family
DX: M81.0 Age-related osteoporosis without current pathological fracture (principal); Z78.0 Asymptomatic menopausal state
CPT/HCPCS: 77080

== ENCOUNTER 2020-08-04 20:23 | Emergency (ER) | payer MEDICARE, MEDICAID ==
[~2020-08-04] VITALS: Ht 170.1 cm; Wt 152.0 kg
[~2020-08-04 20:23] MED LIST changes: -MONT10TA26 PO; +MONT10TA97 PO
[2020-08-04] MEDS ORDERED: methylPREDNISolone 125 MG (Solu-MEDROL) VIAL IM ONE (20:30)
[2020-08-04 20:45] LABS: HEMATOCRIT 36 % (35-52); HEMOGLOBIN 11.7 G/DL (11.5-16.0); LYMPHOCYTES % (AUTO) 23 % (12-44); MEAN CORPUSCULAR HEMOGLOBIN 28 PG (25-34); MEAN CORPUSCULAR HGB CONC 32 G/DL (32-36); MEAN CORPUSCULAR VOLUME 89 FL (80-99); MEAN PLATELET VOLUME 9.4 FL (7.4-10.4); MONOCYTES % (AUTO) 11 % (0-12); NEUTROPHILS % (AUTO) 63 % (42-75); PLATELET COUNT 328 10^3/uL (130-400); WHITE BLOOD COUNT 10.5 10^3/uL (4.3-11.0)
[2020-08-04 20:46] LABS: BASOPHILS # (AUTO) 0.1 10^3/uL (0.0-0.1); BASOPHILS % (AUTO) 1 % (0-10); EOSINOPHILS # (AUTO) 0.3 10^3/uL (0.0-0.3); EOSINOPHILS % (AUTO) 3 % (0-10); LYMPHOCYTES # (AUTO) 2.4 X 10^3 (1.0-4.0); MONOCYTES # (AUTO) 1.1 X 10^3 (0.0-1.0); NEUTROPHILS # (AUTO) 6.5 X 10^3 (1.8-7.8)
--- NOTE | 2020-08-04 20:57 | Diagnostic Imaging Report ---
EXAMINATION: Chest 1 view HISTORY: Chest pain. COMPARISON: 03/10/2020. FINDINGS: The lung volumes are normal. No focal consolidation is seen. No large pleural effusion or pneumothorax is seen. The cardiomediastinal silhouette is normal in size and contour. No acute osseous abnormality is seen. 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 IMPRESSION: 1. No focal consolidations or pleural effusions. Dictated by: Dictated on workstation # [id number]
[2020-08-04 21:13] LABS: ALANINE AMINOTRANSFERASE 14 U/L (0-55); ALKALINE PHOSPHATASE 103 U/L (40-136); BILIRUBIN,TOTAL 0.3 MG/DL (0.1-1.0); BUN/CREATININE RATIO 20; CALCIUM 10.1 MG/DL (8.5-10.1); CARBON DIOXIDE 25 MMOL/L (21-32); CHLORIDE 103 MMOL/L (98-107); CREATININE SERUM 1.04 MG/DL (0.60-1.30); GFR ESTIMATED 52; GLUCOSE 102 MG/DL (70-105); SODIUM 139 MMOL/L (135-145)
[2020-08-04 21:14] LABS: ALBUMIN 4.4 GM/DL (3.2-4.5); TOTAL PROTEIN 7.4 GM/DL (6.4-8.2)
[2020-08-04 21:19] LABS: FIBRIN DEGRADATION PRODUCTS 0.79 UG/ML (0.00-0.49); INR 0.9 (0.8-1.4); PROTHROMBIN TIME PATIENT 12.3 SEC (12.2-14.7)
[2020-08-04] MEDS ORDERED: HOLD METFORMIN - RECEIVED CONTRAST 20 ML VIAL IV SCH (21:45)
[2020-08-04] MEDS ORDERED: CATHETER FLUSH 10 ML SYR IV PRN (21:45)
[2020-08-04] MEDS ORDERED: IOHEXOL 350 MG/ML 100 ML (OMNIPAQUE 350) VIAL IV ONE (21:45)
[2020-08-04] MEDS ORDERED: NS 100 ML (IVPB) BAG IV ONE (21:45)
--- NOTE | 2020-08-04 22:51 | ED General ---
General Chief Complaint: Chest Pain Stated Complaint: CHEST PAIN Nursing Triage Note: Patient is brought in via EMS for complaints of chest pain. Patient states she was sitting down when it started. Patient describes the pain as sharp. It started in the left side of her chest and moved to the right. Patient rates her pain at an 8 on the 1-10 pain scale. EMS gave 50mcg of Fentanyl IV for pain. Patient has a 20g in her right AC that is saline locked. Nursing Sepsis Screen: No Definite Risk Source of Information: Patient, EMS, Family History of Present Illness Date Seen by Provider: Aug 04, 2020 Time Seen by Provider: 20:30 Initial Comments Patient is a 70-year-old female with history of COPD who presents with chest wall pain. Patient states that she was sitting down when pain began. She describes pain as sharp worse with deep breathing and coughing. It started on the left side of her chest and moved across to the right. The pain is currently an 8 out of 10. EMS gave 50 mcg of fentanyl prior to ED arrival with significant improvement of symptoms. Patient reports mild dyspnea chronic cough. Denies fever chills, nausea vomiting and sweats. No leg pain or swelling. Denies abdominal pain. No other acute symptoms or complaints. History obtained from the patient and the patient's daughter as well as EMS s ervices. Timing/Duration: 1-3 Hours Severity: Moderate Modifying Factors: improves with Other Associated Systoms: Chest Pain, Cough, Other Allergies and Home Medications Allergies Coded Allergies: strawberry (Unverified Allergy, Severe, HIVES, 08/15/17) Penicillins (Unverified Allergy, Unknown, RASH, 08/15/17) Home Medications Ascorbic Acid 1,000 Mg Tablet, 1,000 MG PO DAILY, (Reported) Atorvastatin Calcium 10 Mg Tablet, 10 MG PO HS, (Reported) Calcium Carbonate 600 Mg Tablet, 600 MG PO DAILY, (Reported) Carvedilol 6.25 Mg Tablet, 6.25 MG PO HS, (Reported) Cetirizine HCl 10 Mg Tablet, 10 MG PO HS, (Reported) Cyclobenzaprine HCl 5 Mg Tablet, 5 MG PO BID PRN for MUSCLE SPASMS, (Reported) Fluoxetine HCl 20 Mg Capsule, 20 MG PO DAILY, (Reported) Lisinopril 2.5 Mg Tablet, 2.5 MG PO DAILY, (Reported) Montelukast Sodium 10 Mg Tablet, 10 MG PO HS, (Reported) Omeprazole 40 Mg Capsule.dr, 40 MG PO DAILY, (Reported) Spironolactone 25 Mg Tablet, 25 MG PO DAILY, (Reported) Patient Home Medication List Home Medication List Reviewed: Yes Review of Systems Review of Systems Constitutional: see HPI EENTM: see HPI Respiratory: see HPI Cardiovascular: see HPI Gastrointestinal: see HPI Genitourinary: see HPI Musculoskeletal: see HPI Skin: see HPI Psychiatric/Neurological: See HPI Hematologic/Lymphatic: See HPI Immunological/Allergic: see HPI All Other Systems Reviewed Negative Unless Noted: Yes Past Nljtxrs-Kbesma-Moeiuq Hx Past Med/Social Hx: Reviewed Nursing Past Med/Soc Hx Patient Social History Alcohol Use: Denies Use Alcohol Beverage of Choice: Beer Smoking Status: Unknown if Ever Smoked Type Used: Cigarettes Former Smoker, Quit: Dec 02, 2017 2nd Hand Smoke Exposure: No Recent Infectious Disease Expo: No Recent Hopitalizations: No Immunizations Up To Date Tetanus Booster (TDap): Unknown PED Vaccines UTD: Yes Date of Pneumonia Vaccine: Mar 12, 2019 Seasonal Allergies Seasonal Allergies: Yes Past Medical History Surgeries: No Respiratory: Yes COPD, Emphysema Currently Using CPAP: No Currently Using BIPAP: No Cardiac: Yes (CHF) Cardiomyopathy, Coronary Artery Disease, High Cholesterol, Hypertension Neurological: Yes (CVA) Headaches /Migraines Reproductive Disorders: No Female Reproductive Disorders: Denies F[employer] History: Menopausal Sexually Transmitted Disease: No HIV/AIDS: No Genitourinary: No Gastrointestinal: No Musculoskeletal: Yes (nondisplaced fracture of distal fibula, displaced fracture fifth metacarpal) Osteoporosis, Arthritis Endocrine: No HEENT: No Cataract Loss of Vision: Denies Hearing Impairment: Hard of Hearing Cancer: No Psychosocial: No Anxiety, Depression Integumentary: Yes (cellulitis, abscess of neck) Blood Disorders: No Family Medical History Mother passed of CHF at 81 Father passed of CHF at 85 Physical Exam Vital Signs Vital Signs - First Documented Capillary Refill : Less Than 3 Seconds Height, Weight, BMI Height: 5'7.00" Weight: 165lbs. 4.0oz. 72.449144mo; 52.00 BMI Method:Stated General Appearance: No Apparent Distress, Anxious Eyes: Bilateral Eye Normal Inspection, Bilateral Eye PERRL, Bilateral Eye EOMI HEENT: PERRL/EOMI, Normal ENT Inspection, Pharynx Normal Neck: Non Tender, Supple Respiratory: Decreased Breath Sounds, Rhonci, Wheezing, Other Cardiovascular: Regular Rate, Rhythm Gastrointestinal: Non Tender, Soft Extremity: Non Tender, No Calf Tenderness Neurologic/Psychiatric: Alert, Oriented x3, Other (Anxious) Skin: Normal Color, Warm/Dry Focused Exam Sepsis Stage: Ruled Out Progress/Results/Core Measures Suspected Sepsis Recent Fever Within 48 Hours: No Infection Criteria Present: None New/Unexplained Altered Menta: No Sepsis Screen: No Definite Risk SIRS Temperature: Pulse: 92 Respiratory Rate: 18 Laboratory Tests 08/04/20 20:33: White Blood Count 10.5 Blood Pressure 141 /88 Mean: 105 Laboratory Tests 08/04/20 20:33: Creatinine 1.04, INR Comment 0.9, Platelet Count 328, Total Bilirubin 0.3 Results/Orders Lab Results Laboratory Tests Test 08/04/20 20:33 Range/Units White Blood Count 10.5 4.3-11.0 10^3/uL Red Blood Count 4.11 L 4.35-5.85 10^6/uL Hemoglobin 11.7 11.5-16.0 G/DL Hematocrit 36 35-52 % Mean Corpuscular Volume 89 80-99 FL Mean Corpuscular Hemoglobin 28 25-34 PG Mean Corpuscular Hemoglobin Concent 32 32-36 G/DL Red Cell Distribution Width 13.4 10.0-14.5 % Platelet Count 328 130-400 10^3/uL Mean Platelet Volume 9.4 7.4-10.4 FL Immature Granulocyte % (Auto) 0 % Neutrophils (%) (Auto) 63 42-75 % Lymphocytes (%) (Auto) 23 12-44 % Monocytes (%) (Auto) 11 0-12 % Eosinophils (%) (Auto) 3 0-10 % Basophils (%) (Auto) 1 0-10 % Neutrophils # (Auto) 6.5 1.8-7.8 X 10^3 Lymphocytes # (Auto) 2.4 1.0-4.0 X 10^3 Monocytes # (Auto) 1.1 H 0.0-1.0 X 10^3 Eosinophils # (Auto) 0.3 0.0-0.3 10^3/uL Basophils # (Auto) 0.1 0.0-0.1 10^3/uL Immature Granulocyte # (Auto) 0.0 0.0-0.1 10^3/uL Prothrombin Time 12.3 12.2-14.7 SEC INR Comment 0.9 0.8-1.4 D-Dimer 0.79 H 0.00-0.49 UG/ML Sodium Level 139 135-145 MMOL/L Potassium Level 4.0 3.6-5.0 MMOL/L Chloride Level 103 98-107 MMOL/L Carbon Dioxide Level 25 21-32 MMOL/L Anion Gap 11 5-14 MMOL/L Blood Urea Nitrogen 21 H 7-18 MG/DL Creatinine 1.04 0.60-1.30 MG/DL Estimat Glomerular Filtration Rate 52 BUN/Creatinine Ratio 20 Glucose Level 102 70-105 MG/DL Calcium Level 10.1 8.5-10.1 MG/DL Corrected Calcium 9.8 8.5-10.1 MG/DL Total Bilirubin 0.3 0.1-1.0 MG/DL Aspartate Amino Transf (AST/SGOT) 22 5-34 U/L Alanine Aminotransferase (ALT/SGPT) 14 0-55 U/L Alkaline Phosphatase 103 40-136 U/L Troponin I < 0.30 <0.30 NG/ML Pro-B-Type Natriuretic Peptide 46.7 <75.0 PG/ML Total Protein 7.4 6.4-8.2 GM/DL Albumin 4.4 3.2-4.5 GM/DL My Orders Orders - ALF GASTELUM DO Cbc With Automated Diff (08/04/20 20:29) Comprehensive Metabolic Panel (08/04/20 20:29) Troponin I Fs (08/04/20 20:29) Chest 1 View Ap/Pa Only (08/04/20 20:29) Probnp Fs (08/04/20 20:29) Ekg-Prn For Chest Pain Or Rhyt (08/04/20 20:29) Protime With Inr (08/04/20 20:29) Methylprednisolone Sod Succ (Solu-Medrol (08/04/20 20:30) Fibrin Degradation Products (08/04/20 20:29) Ct Angio Chest W (08/04/20 21:33) Iohexol Injection (Omnipaque 350 Mg/Ml 1 (08/04/20 21:45) Received Contrast (Hold Metformin- Contr (08/04/20 21:45) Sodium Chloride Flush (Catheter Flush Sy (08/04/20 21:45) Ns (Ivpb) (Sodium Chloride 0.9% Ivpb Bag (08/04/20 21:45) Medications Given in ED Current Medications Medications Dose Ordered Sig/Jalyn Route Start Time Stop Time Status Last Admin Dose Admin Iohexol 100 ml ONCE ONCE IV 08/04/20 21:45 08/04/20 21:47 DC 08/04/20 21:56 100 ML Methylprednisolone Sodium Succinate 125 mg ONCE ONCE IM 08/04/20 20:30 08/04/20 20:31 DC 08/04/20 20:50 125 MG Sodium Chloride 10 ml NEEDED PRN IV 08/04/20 21:45 08/04/20 21:57 10 ML Sodium Chloride 100 ml ONCE ONCE IV 08/04/20 21:45 08/04/20 21:47 DC 08/04/20 21:57 100 ML Vital Signs/I&O 08/04/20 08/04/20 20:25 20:25 Temp 36.8 Pulse 92 Resp 18 B/P (MAP) 141/88 (105) Pulse Ox 96 O2 Delivery Room Air Room Air Capillary Refill : Less Than 3 Seconds Blood Pressure Mean: 105 Departure Communication (Admissions) CTA chest: No acute cardiopulmonary findings or PE identified per radiology repo rt Chest x-ray: No obvious pulmonary infiltrate or consolidation EKG: No acute ST-T wave changes. Atypical chest wall pain suggestive of pleurisy. Patient resting comfortably, with treatment. Vital signs stable, O2 saturation greater than 94% on room air. EKG lab and imaging reviewed with patient was comfortable with discharge plan we will treat supportively with PCP follow-up. Return precautions reviewed. Patient's verbalizes understanding agreement discharge instructions prior to departure. Impression Primary Impression: Chest pain Additional Impressions: Pleurisy COPD with acute exacerbation Disposition: HOME, SELF-CARE Condition: Stable Admissions Time/Decision to Admit Time: 22:51 Departure-Patient Inst. Referrals: [facility] (PCP) Primary Care Physician ZOHRA GARCIA APRN (Family) Primary Care Physician Patient Instructions: COPD Exacerbation, Adult ED, Pleuritic Chest Pain Add. Discharge Instructions: Please continue home medications and take newly prescribed medications as directed follow discharge instructions attached to this paperwork. Follow-up with your PCP for reevaluation. Return to the ED if new or worsening symptoms. All discharge instructions reviewed with patient and/or family. Voiced understanding. Scripts Azithromycin (Zithromax) 250 Mg Tablet 250 MG PO UD, #6 TAB TAKE 2 TABLETS TODAY, THEN TAKE 1 TABLET DAILY FOR 4 MORE DAYS Prov: ALF GASTELUM DO 08/04/20 Guaifenesin (Mucinex) 1,200 Mg Tab.er.12h 1200 MG PO BID, #30 TAB Prov: ALF GASTELUM DO 08/04/20 Prednisone (Prednisone) 50 Mg Tab 50 MG PO DAILY, #5 TAB Prov: ALF GASTELUM DO 08/04/20 ALF GASTELUM DO Aug 04, 2020 22:51
[2020-08-04] MEDS ORDERED: PRD50T PO (22:55)
[2020-08-04] MEDS ORDERED: GUAI120013 PO (22:55)
[2020-08-04] MEDS ORDERED: AZIT250T PO (22:55)
[2020-08-04 23:00] VITALS: BP 135/83
--- NOTE | 2020-08-05 07:09 | Diagnostic Imaging Report ---
PROCEDURE: CT angiography of the chest with contrast. TECHNIQUE: Multiple contiguous axial images were obtained through the chest after uneventful bolus administration of intravenous contrast. 3D reconstructed CTA MIP acquisitions were also performed. Auto Exposure Controls were utilized during the CT exam to meet ALARA standards for radiation dose reduction. INDICATION: Chest pain and elevated D-dimer. No prior studies. Diffuse emphysematous changes in the lungs. No focal consolidating pneumonia or large pleural effusion. There is a moderate-sized hiatal hernia. No evidence for acute thoracic aortic aneurysm or dissection. No acute pulmonary embolus. Again noted are innumerable cysts and hypodensities in the kidneys bilaterally. No masses are seen in the upper abdomen IMPRESSION: 1. No acute pulmonary embolus or acute thoracic aortic abnormality. 2. Extensive pulmonary emphysematous change. No focal consolidating pneumonia or large effusion. 3. No axillary or mediastinal mass or adenopathy. 4. Moderate hiatal hernia. 5. Innumerable bilateral renal hypodensities and cysts. Renal ultrasound might be considered. I agree with the preliminary teleradiology report. Dictated by: Dictated on workstation # [id number]
== END 2020-08-04 23:00 | disposition home or self-care (01) ==
LOC: EDUNIT# 20:23 → ER FS 20:24
DX: R07.9 Chest pain, unspecified (principal); R09.1 Pleurisy; J44.1 Chronic obstructive pulmonary disease with (acute) exacerbation; I10 Essential (primary) hypertension; E78.00 Pure hypercholesterolemia, unspecified; F32.9 Major depressive disorder, single episode, unspecified; F41.9 Anxiety disorder, unspecified; Z88.0 Allergy status to penicillin; Z87.891 Personal history of nicotine dependence
CPT/HCPCS: 36415; 71045; 71275; 80053; 83880; 84484; 85025; 85379; 85610

== ENCOUNTER 2020-12-31 15:05 | Emergency (ER) | payer MEDICARE, MEDICAID ==
[~2020-12-31 15:05] MED LIST changes: +AZIT250T PO; +CALC600T91 PO; -CLC600T PO; +GUAI120013 PO; +MONT10TA32 PO; -MONT10TA97 PO; -OMEP40CA27 PO; +OMEP40CA6 PO; +PRD50T PO
--- NOTE | 2020-12-31 15:38 | ED Fall/Injury ---
General Chief Complaint: Lower Extremity Stated Complaint: FALL; ANKLE INJ Nursing Triage Note: Pt presents per EMS reporting called to residence for patient fall with swollen ankle. Pt states getting out of bed and caught foot and fell. L lateral ankle moderately swollen. Source: patient, EMS History of Present Illness Date Seen by Provider: Dec 31, 2020 Time Seen by Provider: 15:08 Initial Comments 70-year-old female that fell at home when she was trying to get up to go to the bathroom. She wears oxygen at home and when she turned to check the oxygen off and go to the bathroom she caught her foot and fell. She has pain and swelling to her left ankle. She has not been able to stand or bear weight. She denies any her head or losing consciousness. She has not taken anything for pain. EMS was called to bring her to the emergency department. Location Injury Occurred: home Occurred: just prior to arrival Severity: moderate Injuries/Pain Location: lower extremity Context: tripped Loss of Consciousness: no loss of consciousness Associated Symptoms (Fall): No Abdominal Pain, No Chest Pain, No Confusion, No Dizziness, No Headache, No Lightheadedness, No Muscle Spasms, No Nausea/Vomiting , No Neck Pain, No Ringing in Ears, No Seizures, No Slurred Speech, No Vision Changes Allergies and Home Medications Allergies Coded Allergies: strawberry (Unverified Allergy, Severe, HIVES, 08/15/17) Penicillins (Unverified Allergy, Unknown, RASH, 08/15/17) Home Medications Ascorbic Acid 1,000 Mg Tablet, 1,000 MG PO DAILY, (Reported) Last Action: Last Taken Edited Atorvastatin Calcium 10 Mg Tablet, 10 MG PO HS, (Reported) Last Action: Reviewed Calcium Carbonate 600 Mg Tablet, 600 MG PO DAILY, (Reported) Last Action: Reviewed Carvedilol 6.25 Mg Tablet, 6.25 MG PO HS, (Reported) Last Action: Last Taken Edited Cetirizine HCl 10 Mg Tablet, 10 MG PO HS, (Reported) Last Action: Reviewed Cyclobenzaprine HCl 5 Mg Tablet, 5 MG PO BID PRN for MUSCLE SPASMS, (Reported) Last Action: Last Taken Edited Fluoxetine HCl 20 Mg Capsule, 20 MG PO DAILY, (Reported) Last Action: Reviewed Hydrocodone/Acetaminophen 1 Each Tablet, 1 TAB PO Q6H PRN for PAIN-SEVERE (8-10) Prescribed by: CROW FABIAN on 12/31/20 1603 Lisinopril 2.5 Mg Tablet, 2.5 MG PO DAILY, (Reported) Last Action: Reviewed Montelukast Sodium 10 Mg Tablet, 10 MG PO HS, (Reported) Last Action: Reviewed Omeprazole 40 Mg Capsule.dr, 40 MG PO DAILY, (Reported) Last Action: Reviewed Prednisone 50 Mg Tab, 50 MG PO DAILY Prescribed by: ALF GASTELUM on 08/04/20 [id number] Last Action: Last Taken Edited Spironolactone 25 Mg Tablet, 25 MG PO DAILY, (Reported) Last Action: Reviewed Patient Home Medication List Home Medication List Reviewed: Yes Review of Systems Review of Systems Constitutional: No chills, No fever Eyes: No Symptoms Reported Ears, Nose, Mouth, Throat: no symptoms reported Respiratory: short of breath (chronic and no worse than usual) Cardiovascular: no symptoms reported Gastrointestinal: no symptoms reported Genitourinary: no symptoms reported Musculoskeletal: see HPI Skin: change in color Psychiatric/Neurological: Denies Numbness, Denies Paresthesia Past Vdltnnp-Sgijwc-Rycwxh Hx Patient Social History Tobacco Use?: No Smoking Status: Former Smoker Smokeless Tobacco Frequency: Former User Substance use?: No Alcohol Use?: No Pt feels they are or have been: No Immunizations Up To Date Tetanus Booster (TDap): Unknown PED Vaccines UTD: Yes Seasonal Allergies Seasonal Allergies: Yes Past Medical History Surgeries: No Respiratory: Yes COPD, Emphysema Currently Using CPAP: No Currently Using BIPAP: No Cardiac: Yes (CHF) Cardiomyopathy, Coronary Artery Disease, High Cholesterol, Hypertension Neurological: Yes (CVA) Headaches /Migraines Reproductive Disorders: No Female 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 Transmitted Disease: No HIV/AIDS: No Genitourinary: No Gastrointestinal: No Musculoskeletal: Yes (nondisplaced fracture of distal fibula, displaced fracture fifth metacarpal) Osteoporosis, Arthritis Endocrine: No HEENT: No Cataract Loss of Vision: Denies Hearing Impairment: Hard of Hearing Cancer: No Psychosocial: No Anxiety, Depression Integumentary: Yes (cellulitis, abscess of neck) Blood Disorders: No Family Medical History Mother passed of CHF at 81 Father passed of CHF at 85 Physical Exam Vital Signs Vital Signs - First Documented 12/31/20 15:05 Temp 36.4 Pulse 96 Resp 20 B/P (MAP) 130/74 (92) Pulse Ox 96 O2 Delivery Room Air Capillary Refill : Less Than 3 Seconds Height, Weight, BMI Height: 5'7.00" Weight: 165lbs. 4.0oz. 72.490695bs; 52.00 BMI Method:Stated General Appearance: no apparent distress, other (chronically ill appearing) Cardiovascular: normal peripheral pulses, regular rate, rhythm Extremities: normal capillary refill, swelling (left lateral ankle with bruising ), other (pain with palpation of ankle and with movement of ankle) Neurologic/Psychiatric: no motor/sensory deficits, alert, oriented x 3 Skin: warm/dry, ecchymosis (left lateral ankle) Mariza Coma Score Best Eye Response: (4) Open Spontaneously Best Verbal Response: (5) Oriented Best Motor Response: (6) Obeys Commands [place] Total: 15 Procedures/Interventions Splinting and Joint Reduction : Location: Left ankle Pre-Proc Neuro Vasc Exam: normal Post-Proc Neuro Vasc Exam: normal Progress Splinting with Ortho-Glass performed by applying a posterior splint in a stirrup splint to help stabilize her distal tibia comminuted fracture. Patient was neurovascular and tendon intact both pre and post procedure. She tolerated the splinting well without any immediate complication. Counseled on follow-up and return precautions. Progress/Results/Core Measures Results/Orders My Orders Orders - CROW FABIAN MD Ice: Apply To Affected Area (12/31/20 15:13) Elevate Affected Extremity (12/31/20 15:13) Ankle 3 View Left (12/31/20 15:13) Hydrocodone/Apap 5/325 Tablet (Lortab 5 (12/31/20 15:47) Ed Ortho/Other Supplies Order (12/31/20 15:47) Ortho Glass (12/31/20 15:47) Vital Signs/I&O 12/31/20 12/31/20 15:05 16:09 Temp 36.4 36.4 Pulse 96 Resp 20 B/P (MAP) 130/74 (92) Pulse Ox 96 O2 Delivery Room Air Blood Pressure Mean: 92 Progress Progress Note #1: Progress Note pt states she does not like to take medicine so will hold off on pain medicine until get imaging. ice and elevate to help with pain and swelling. Progress Note #2: Progress Note Patient has acute comminuted distal tibia fracture. The mortise appears intact and the fibula appears intact. She states that she has tolerated hydrocodone for pain in the past so we will give her 1 of these and she declined having a shot. Prescribed hydrocodone for home and place in a splint with posterior and stirrup components. She states that she has a walker at home that she will use. Advised to follow-up through the clinic to get a cast placed within the next week. If she bears weight she runs the risk of displacing the fracture fragments and requiring surgery. Elevate and ice the extremity to help with pain and swelling. Keep the splint clean and dry. Diagnostic Imaging Diagonstic Imaging: Xray Plain Films/CT/US/NM/MRI: ankle Comments NAME: NATALI [facility] REC#: [id number] PT STATUS: REG ER : 1950 PHYSICIAN: CROW FABIAN MD ADMIT DATE: 12/31/20/ER FS Draft Date of Exam:12/31/20 ANKLE 3 VIEW LEFT INDICATION: Injury left ankle AP, oblique, and lateral views of the left ankle obtained at 3:25 p.m. There is a comminuted oblique fracture of distal tibia with mild displacement. The fibula appears intact. Talus and tarsal bones appear intact. There is soft tissue swelling. IMPRESSION: Acute comminuted oblique fracture of the distal tibia with mild displacement. Dictated on workstation # [id number] Dict: 12/31/20 1538 Trans: 12/31/20 1540 [facility] [id number] Interpreted by: MARLEY SINGH MD Electronically signed by: Reviewed: Reviewed by Me Departure Impression Primary Impression: Traumatic closed nondisplaced fracture of distal end of left tibia Qualified Codes: S82.302A - Unspecified fracture of lower end of left tibia, initial encounter for closed fracture Additional Impression: Fall at home Qualified Codes: W19.XXXA - Unspecified fall, initial encounter; Y92.009 - Unspecified place in unspecified non-institutional (private) residence as the place of occurrence of the external cause Disposition: 01 HOME, SELF-CARE Condition: Stable Departure-Patient Inst. Decision time for Depature: 16:03 Referrals: ZOHRA GARCIA APRN (PCP) Primary Care Physician [facility] (Family) Primary Care Physician CÉSAR GARCIA MD Patient Instructions: Cast Care ED, How to Use a Walker, Lower Leg Fracture ED, Preventing Falls ED, Splint Care ED Add. Discharge Instructions: Keep splint clean and dry. Cover with plastic bag when you take a shower. Use walker at home and do not bear weight on left leg. Call clinic for follow up within the next week to get a cast placed. You could check with Dr. Garcia and his Nurse Practitioner Oswaldo Duncan about being seen at the [facility] clinic here in [place] by calling [phone] Try to keep your leg elevated above waist level as much as possible to help with pain and swelling Ice 20-30 minutes every few hours as needed for pain and swelling All discharge instructions reviewed with patient and/or family. Voiced understanding. Scripts Hydrocodone/Acetaminophen (Hydrocodone-Acetamin 5-325 mg) 1 Each Tablet 1 TAB PO Q6H PRN for PAIN-SEVERE (8-10) for 5 Days, #20 TAB 0 Refills Prov: CROW FABIAN MD 12/31/20 CROW FABIAN MD Dec 31, 2020 15:38
[2020-12-31] MEDS ORDERED: HYDROcodone/APAP 5 MG/325 MG (LORTAB) TAB PO STA (15:47)
[2020-12-31] MEDS ORDERED: ACHD5005 PO (16:01)
[2020-12-31 16:10] VITALS: BP 132/70
== END 2020-12-31 16:10 | disposition home or self-care (01) ==
LOC: EDUNIT# 15:05 → ER FS 15:06
DX: S82.235A Nondisplaced oblique fracture of shaft of left tibia, initial encounter for closed fracture (principal); I11.0 Hypertensive heart disease with heart failure; I50.9 Heart failure, unspecified; J44.9 Chronic obstructive pulmonary disease, unspecified; E78.00 Pure hypercholesterolemia, unspecified; I25.10 Atherosclerotic heart disease of native coronary artery without angina pectoris; F32.9 Major depressive disorder, single episode, unspecified; Z87.891 Personal history of nicotine dependence; Z79.899 Other long term (current) drug therapy; Z79.52 Long term (current) use of systemic steroids; W23.1XXA Caught, crushed, jammed, or pinched between stationary objects, initial encounter; Y92.009 Unspecified place in unspecified non-institutional (private) residence as the place of occurrence of the external cause
CPT/HCPCS: 29515; 73610

== ENCOUNTER → 2021-11-18 | Outpatient (CLI) | payer MEDICARE, MEDICAID ==
[~2021-11-18] MED LIST changes: +ACHD5005 PO; -FLUO20CA46 PO; +FLUO20CA48 PO; -LISI2.5T PO; +LISI2.5T13 PO; +MONT-40 PO; -MONT10TA32 PO; +RT-ALBUTEROL SULF 2.5 MG/3 ML PRE-MIX VIAL INH ONE
--- NOTE | 2021-11-18 13:21 | Diagnostic Imaging Report ---
EXAMINATION: CT chest without contrast. TECHNIQUE: Multiple contiguous axial images were obtained through the chest without the use of intravenous contrast. All CT scans use one or more of the following dose optimizing techniques: automated exposure control, MA and/or KvP adjustment based on patient size and exam type or iterative reconstruction. HISTORY: Shortness of breath, COPD, pulmonary nodules. COMPARISON: 08/04/2020 FINDINGS: Thyroid: The thyroid is normal. Mediastinum: Heart size is normal without significant pericardial effusion. Calcifications of the aorta and coronary vessels. Thoracic aorta is normal in caliber. No suspicious lymphadenopathy. Lungs and airways: There are background emphysematous changes of the lungs without pleural effusion or pneumothorax. Mild opacities within the inferior right upper lobe. There is a 0.6 cm right upper lobe subpleural pulmonary nodule. There is medial left lower lobe subpleural pulmonary nodule measuring 0.6 cm. Additional smaller nodules are unchanged. The airways are normal. Upper abdomen: The subphrenic structures are normal. Musculoskeletal: Stable compression deformity of the T10 vertebral body. Degenerative changes of the spine. IMPRESSION: 1. New patchy opacities within the inferior right upper lobe which may represent pneumonia. 2. Stable bilateral pulmonary nodules measuring up to 0.6 cm. 3. COPD. Dictated by: Dictated on workstation # [id number]
== END ==
LOC: RT 09:15
PROVIDERS: ATTEND Nurse Practitioner Family
DX: J44.9 Chronic obstructive pulmonary disease, unspecified (principal); R91.8 Other nonspecific abnormal finding of lung field; G47.34 Idiopathic sleep related nonobstructive alveolar hypoventilation
CPT/HCPCS: 71250; 94060; 94726; 94729

== ENCOUNTER 2021-12-19 23:56 | Inpatient (IN) | payer MEDICARE, MEDICAID ==
[~2021-12-19] VITALS: Ht 167.7 cm; Wt 71.3 kg
[~2021-12-19 23:56] MED LIST changes: -RT-ALBUTEROL SULF 2.5 MG/3 ML PRE-MIX VIAL INH ONE
[2021-12-20] MEDS ORDERED: PANTOPRAZOLE 40 MG (PROTONIX) VIAL IV ONE (00:15)
[2021-12-20] MEDS ORDERED: ONDANSETRON 4 MG/2 ML (SDV) Z0FRAN IVP ONE (00:15)
[2021-12-20 00:23] LABS: BASOPHILS % (AUTO) 0 % (0-10); EOSINOPHILS # (AUTO) 0.1 10^3/uL (0.0-0.3); EOSINOPHILS % (AUTO) 1 % (0-10); HEMATOCRIT 34 % (35-52); HEMOGLOBIN 11.7 g/dL (11.5-16.0); LYMPHOCYTES % (AUTO) 16 % (12-44); MEAN CORPUSCULAR HEMOGLOBIN 30 pg (25-34); MEAN CORPUSCULAR HGB CONC 34 g/dL (32-36); MEAN CORPUSCULAR VOLUME 87 fL (80-99); MEAN PLATELET VOLUME 11.1 fL (9.0-12.2); MONOCYTES # (AUTO) 1.1 10^3/uL (0.0-1.0); MONOCYTES % (AUTO) 9 % (0-12); NEUTROPHILS # (AUTO) 9.1 10^3/uL (1.8-7.8); NEUTROPHILS % (AUTO) 74 % (42-75); PLATELET COUNT 134 10^3/uL (130-400); WHITE BLOOD COUNT 12.4 10^3/uL (4.3-11.0)
[2021-12-20 00:33] LABS: INR 0.8 (0.8-1.4); PARTIAL THROMBOPLASTIN TIME < 20 SEC (24-35); PROTHROMBIN TIME PATIENT 11.7 SEC (12.2-14.7)
--- NOTE | 2021-12-20 00:36 | ED GI ---
General Chief Complaint: Abdominal/GI Problems Stated Complaint: N/V Nursing Triage Note: Patient states that she started having black stools and black vomit at 11:00 yesterday morning. Patient denies being on blood thinners or injury. Patient denies having abdominal pain but does report a history of ulcers. Source of Information: Patient Exam Limitations: No Limitations History of Present Illness Date Seen by Provider: Dec 19, 2021 Time Seen by Provider: 23:59 Initial Comments 71-year-old female with past medical history of COPD and hypertension coming in due to concerns for black stools and black vomit. Started around 11 AM this morning with initially clear vomit, and eventually it turned black later on in the night. She had multiple dark stools as well. She does not take any blood thinners, no NSAIDs, no history of liver disease, does not drink alcohol, and no prior history of GI bleed. She is having some upper abdominal discomfort that is constant, sharp, and nothing seems to make better or worse. She has not taken any medicines for it as of yet. Allergies and Home Medications Allergies Coded Allergies: strawberry (Unverified Allergy, Severe, HIVES, 08/15/17) Penicillins (Unverified Allergy, Unknown, RASH, 08/15/17) Patient Home Medication List Home Medication List Reviewed: Yes Ascorbic Acid (Vitamin C) 1,000 Mg Tablet, 1,000 MG PO DAILY, (Reported) Entered as Reported by: JUAN DIEGO BRADLEY on 03/11/20 130 Atorvastatin Calcium (Atorvastatin Calcium) 10 Mg Tablet, 10 MG PO HS, (Reported) Entered as Reported by: JUAN DIEGO BRADLEY on 03/11/20 130 Calcium Carbonate (Calcium) 600 Mg Tablet, 600 MG PO DAILY, (Reported) Entered as Reported by: JUAN DIEGO BRADLEY on 03/11/20 130 Carvedilol (Carvedilol) 6.25 Mg Tablet, 6.25 MG PO HS, (Reported) Entered as Reported by: JUAN DIEGO BRADLEY on 03/11/20 130 Cetirizine HCl (Cetirizine HCl) 10 Mg Tablet, 10 MG PO HS, (Reported) Entered as Reported by: JUAN DIEGO BRADLEY on 03/11/20 130 Cyclobenzaprine HCl (Cyclobenzaprine HCl) 5 Mg Tablet, 5 MG PO BID PRN for MUSCLE SPASMS, (Reported) Entered as Reported by: JUAN DIEGO BRADLEY on 03/11/20 130 Fluoxetine HCl (Fluoxetine HCl) 20 Mg Capsule, 20 MG PO DAILY, (Reported) Entered as Reported by: JUAN DIEGO BRADLEY on 03/11/20 130 Hydrocodone/Acetaminophen (Hydrocodone-Acetamin 5-325 mg) 1 Each Tablet, 1 TAB PO Q6H PRN for PAIN-SEVERE (8-10) Prescribed by: CROW FABIAN on 12/31/20 1603 Lisinopril (Lisinopril) 2.5 Mg Tablet, 2.5 MG PO DAILY, (Reported) Entered as Reported by: JUAN DIEGO BRADLEY on 03/11/20 130 Montelukast Sodium (Montelukast Sodium) 10 Mg Tablet, 10 MG PO HS, (Reported) Entered as Reported by: JUAN DIEGO BRADLEY on 03/11/20 130 Omeprazole (Omeprazole) 40 Mg Capsule.dr, 40 MG PO DAILY, (Reported) Entered as Reported by: JUAN DIEGO BRADLEY on 03/11/20 130 Prednisone (Prednisone) 50 Mg Tab, 50 MG PO DAILY Prescribed by: ALF GASTELUM on 08/04/20 9877 Spironolactone (Spironolactone) 25 Mg Tablet, 25 MG PO DAILY, (Reported) Entered as Reported by: JUAN DIEGO BRADLEY on 03/11/20 130 Review of Systems Review of Systems Constitutional: No fever EENTM: No Blurred Vision Respiratory: Denies Cough Cardiovascular: Denies Chest Pain Gastrointestinal: Abdominal Pain, Diarrhea, Nausea, Vomiting Genitourinary: No Symptoms Reported Musculoskeletal: no symptoms reported Skin: no symptoms reported Psychiatric/Neurological: No Symptoms Reported Endocrine: No Symptoms Reported Hematologic/Lymphatic: No Symptoms Reported All Other Systems Reviewed Negative Unless Noted: Yes Past Dicmcov-Pqjmek-Pbkqdd Hx Patient Social History Tobacco Use?: No Substance use?: No Alcohol Use?: No Pt feels they are or have been: No Immunizations Up To Date Tetanus Booster (TDap): Unknown PED Vaccines UTD: Yes COVID19 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[employer] Seasonal Allergies Seasonal Allergies: Yes Past Medical History Surgeries: No Respiratory: Yes COPD, Emphysema Currently Using CPAP: No Currently Using BIPAP: No Cardiac: Yes (CHF) Cardiomyopathy, Coronary Artery Disease, High Cholesterol, Hypertension Neurological: Yes (CVA) Headaches /Migraines Reproductive Disorders: No Female Reproductive Disorders: 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 Sexually Transmitted Disease: No HIV/AIDS: No Genitourinary: No Gastrointestinal: No Musculoskeletal: Yes (nondisplaced fracture of distal fibula, displaced fracture fifth metacarpal) Osteoporosis, Arthritis Endocrine: No HEENT: No Cataract Loss of Vision: Denies Hearing Impairment: Hard of Hearing Cancer: No Psychosocial: No Anxiety, Depression Integumentary: Yes (cellulitis, abscess of neck) Blood Disorders: No Family Medical History Mother passed of CHF at 81 Father passed of CHF at 85 Physical Exam Vital Signs Vital Signs - First Documented 12/20/21 00:05 Temp 36.6 Pulse 92 Resp 16 B/P (MAP) 135/77 (96) Pulse Ox 91 O2 Delivery Room Air Capillary Refill : Less Than 3 Seconds Height/Weight/BMI Height: 5'7.00" Weight: 165lbs. 4.0oz. 72.358776pg; 22.00 BMI Method:Stated General Appearance: WD/WN, no apparent distress HEENT: PERRL/EOMI, normal ENT inspection, pharynx normal Neck: non-tender, full range of motion, supple, normal inspection Respiratory: chest non-tender, lungs clear, normal breath sounds, no respiratory distress, no accessory muscle use Cardiovascular: regular rate, rhythm, no edema, no murmur Gastrointestinal: normal bowel sounds, non tender, soft; No distended, No guarding, No rebound Rectal: other (Stool is dark brown and is occult blood negative) Extremities: normal range of motion, non-tender, normal inspection, no pedal edema, no calf tenderness, normal capillary refill Back: normal inspection, no CVA tenderness Neurologic/Psychiatric: no motor/sensory deficits, alert, normal mood/affect Skin: normal color, warm/dry Lymphatic: no adenopathy Progress/Results/Core Measures Results/Orders Lab Results Laboratory Tests Test 12/20/21 00:09 Range/Units White Blood Count 12.4 H 4.3-11.0 10^3/uL Red Blood Count 3.96 3.80-5.11 10^6/uL Hemoglobin 11.7 11.5-16.0 g/dL Hematocrit 34 L 35-52 % Mean Corpuscular Volume 87 80-99 fL Mean Corpuscular Hemoglobin 30 25-34 pg Mean Corpuscular Hemoglobin Concent 34 32-36 g/dL Red Cell Distribution Width 12.9 10.0-14.5 % Platelet Count 134 130-400 10^3/uL Mean Platelet Volume 11.1 9.0-12.2 fL Immature Granulocyte % (Auto) 0 % Neutrophils (%) (Auto) 74 42-75 % Lymphocytes (%) (Auto) 16 12-44 % Monocytes (%) (Auto) 9 0-12 % Eosinophils (%) (Auto) 1 0-10 % Basophils (%) (Auto) 0 0-10 % Neutrophils # (Auto) 9.1 H 1.8-7.8 10^3/uL Lymphocytes # (Auto) 2.0 1.0-4.0 10^3/uL Monocytes # (Auto) 1.1 H 0.0-1.0 10^3/uL Eosinophils # (Auto) 0.1 0.0-0.3 10^3/uL Basophils # (Auto) 0.0 0.0-0.1 10^3/uL Immature Granulocyte # (Auto) 0.0 0.0-0.1 10^3/uL Prothrombin Time 11.7 L 12.2-14.7 SEC INR Comment 0.8 0.8-1.4 Activated Partial Thromboplast Time < 20 L 24-35 SEC Sodium Level 137 135-145 MMOL/L Potassium Level 5.0 3.6-5.0 MMOL/L Chloride Level 101 98-107 MMOL/L Carbon Dioxide Level 22 21-32 MMOL/L Anion Gap 14 5-14 MMOL/L Blood Urea Nitrogen 20 H 7-18 MG/DL Creatinine 1.20 0.60-1.30 MG/DL Estimat Glomerular Filtration Rate 48 BUN/Creatinine Ratio 17 Glucose Level 120 H 70-105 MG/DL Calcium Level 11.1 H 8.5-10.1 MG/DL Corrected Calcium 8.5-10.1 MG/DL Total Bilirubin 0.2 0.1-1.0 MG/DL Aspartate Amino Transf (AST/SGOT) 25 5-34 U/L Alanine Aminotransferase (ALT/SGPT) 16 0-55 U/L Alkaline Phosphatase 90 40-136 U/L Troponin I < 0.30 <0.30 NG/ML Total Protein 7.3 6.4-8.2 GM/DL Albumin 4.6 H 3.2-4.5 GM/DL Lipase 47 8-78 U/L My Orders Orders - RALPH ARAUJO MD Ondansetron Injection (Zofran Injectio (12/20/21 00:15) Ed Iv/Invasive Line Start (12/20/21 00:15) Comprehensive Metabolic Panel (12/20/21 00:15) Lipase (12/20/21 00:15) Ed Iv/Invasive Line Start (12/20/21 00:15) Cbc With Automated Diff (12/20/21 00:15) Lactic Acid Analyzer (12/20/21 00:15) Protime With Inr (12/20/21 00:15) Partial Thromboplastin Time (12/20/21 00:15) Troponin I Fs (12/20/21 00:15) Ekg Tracing (12/20/21 00:15) Pantoprazole Injection (Protonix Injecti (12/20/21 00:15) Ct Abdomen/Pelvis W (12/20/21 00:28) Iohexol Injection (Omnipaque 350 Mg/Ml 1 (12/20/21 00:45) Received Contrast (Hold Metformin- Contr (12/20/21 00:45) Ns (Ivpb) (Sodium Chloride 0.9% Ivpb Bag (12/20/21 00:45) Medications Given in ED Current Medications Medications Dose Ordered Sig/Jalyn Route Start Time Stop Time Status Last Admin Dose Admin Iohexol 100 ml ONCE ONCE IV 12/20/21 00:45 12/20/21 00:46 DC 12/20/21 00:50 100 ML Ondansetron HCl 4 mg ONCE ONCE IVP 12/20/21 00:15 12/20/21 00:17 DC 12/20/21 00:30 4 MG Pantoprazole 40 mg ONCE ONCE IV 12/20/21 00:15 12/20/21 00:17 DC 12/20/21 00:30 40 MG Sodium Chloride 100 ml ONCE ONCE IV 12/20/21 00:45 12/20/21 00:46 DC 12/20/21 00:51 100 ML Vital Signs/I&O 12/20/21 00:05 Temp 36.6 Pulse 92 Resp 16 B/P (MAP) 135/77 (96) Pulse Ox 91 O2 Delivery Room Air Blood Pressure Mean: 96 Progress Progress Note : Progress Note 71-year-old female with above history coming in due to concerns for coffee- ground emesis. BCs were intact and vitals were stable on presentation although she was mildly tachycardic. Physical exam with a soft and nontender abdomen. She does have dark stool on exam, but it is not wm melena or bright red blood. Given Zofran and Protonix on arrival. No history of liver disease and does not drink alcohol so did not give ceftriaxone or octreotide given lower concern for variceal bleed. Initial hemoglobin 11.7, coagulation studies normal, creatinine unremarkable. CT abdomen pelvis ordered to assess for liver disease versus other causes of bleeding. I discussed the case with Dr. Simms who admit the patient to the intensive care unit under inpatient status. I then called Dr. CHOW for his consultation. Initial ECG Impression Date: Dec 20, 2021 Initial ECG Impression Time: 00:27 Initial ECG Rate: 86 Initial ECG Rhythm: Normal Sinus Comment Narrow QRS, normal axis, no significant ST changes or T wave abnormalities Diagnostic Imaging Diagonstic Imaging: CT Plain Films/CT/US/NM/MRI: abdomen, pelvis Departure Impression Primary Impression: Coffee ground emesis Disposition: 30 STILL A PATIENT Condition: Stable Admissions Decision to Admit Reason: Admit from ER (General) Decision to Admit/Date: Dec 20, 2021 Time/Decision to Admit Time: 00:50 Transfer Method of Transfer: EMS Departure-Patient Inst. Referrals: ZOHRA GARCIA APRN (PCP) Primary Care Physician [facility] (Family) Primary Care Physician RALPH ARAUJO MD Dec 20, 2021 00:35
[2021-12-20 00:42] LABS: ALANINE AMINOTRANSFERASE 16 U/L (0-55); ALBUMIN 4.6 GM/DL (3.2-4.5); ALKALINE PHOSPHATASE 90 U/L (40-136); BILIRUBIN,TOTAL 0.2 MG/DL (0.1-1.0); BUN/CREATININE RATIO 17; CALCIUM 11.1 MG/DL (8.5-10.1); CARBON DIOXIDE 22 MMOL/L (21-32); CHLORIDE 101 MMOL/L (98-107); GFR ESTIMATED 48; GLUCOSE 120 MG/DL (70-105); LIPASE 47 U/L (8-78); SODIUM 137 MMOL/L (135-145); TOTAL PROTEIN 7.3 GM/DL (6.4-8.2)
[2021-12-20] MEDS ORDERED: NS 100 ML (IVPB) BAG IV ONE (00:45)
[2021-12-20] MEDS ORDERED: HOLD METFORMIN - RECEIVED CONTRAST 20 ML VIAL IV SCH (00:45)
[2021-12-20] MEDS ORDERED: IOHEXOL 350 MG/ML 100 ML (OMNIPAQUE 350) VIAL IV ONE (00:45)
[2021-12-20 03:15] VITALS: BP 135/77
--- NOTE | 2021-12-20 03:23 | Tele-ICU Consult ---
History of Present Illness History of Present Illness Date Seen by Provider: Dec 20, 2021 Time Seen by Provider: 03:20 Date of Admission ED note 71-year-old female with past medical history of COPD and hypertension coming in due to concerns for black stools and black vomit. Started around 11 AM this morning with initially clear vomit, and eventually it turned black later on in the night. She had multiple dark stools as well. She does not take any blood thinners, no NSAIDs, no history of liver disease, does not drink alcohol, and no prior history of GI bleed. She is having some upper abdominal discomfort that is constant, sharp, and nothing seems to make better or worse. She has not taken any medicines for it as of yet. ICU GI bleed: appears stable/ nad no nausea/ no bleeding at present no hypotension Allergies and Home Medications Allergies Coded Allergies: strawberry (Unverified Allergy, Severe, HIVES, 08/15/17) Penicillins (Unverified Allergy, Unknown, RASH, 08/15/17) Home Medications Ascorbic Acid 1,000 Mg Tablet, 1,000 MG PO DAILY, (Reported) Atorvastatin Calcium 10 Mg Tablet, 10 MG PO HS, (Reported) Calcium Carbonate 600 Mg Tablet, 600 MG PO DAILY, (Reported) Carvedilol 6.25 Mg Tablet, 6.25 MG PO HS, (Reported) Cetirizine HCl 10 Mg Tablet, 10 MG PO HS, (Reported) Cyclobenzaprine HCl 5 Mg Tablet, 5 MG PO BID PRN for MUSCLE SPASMS, (Reported) Fluoxetine HCl 20 Mg Capsule, 20 MG PO DAILY, (Reported) Hydrocodone/Acetaminophen 1 Each Tablet, 1 TAB PO Q6H PRN for PAIN-SEVERE (8-10) Prescribed by: CROW FABIAN on 12/31/20 1603 Lisinopril 2.5 Mg Tablet, 2.5 MG PO DAILY, (Reported) Montelukast Sodium 10 Mg Tablet, 10 MG PO HS, (Reported) Omeprazole 40 Mg Capsule.dr, 40 MG PO DAILY, (Reported) Prednisone 50 Mg Tab, 50 MG PO DAILY Prescribed by: ALF GASTELUM on 08/04/20 8967 Spironolactone 25 Mg Tablet, 25 MG PO DAILY, (Reported) Past Medical/Social/Family Hx Patient Social History Tobacco Use?: No Substance use?: No Alcohol Use?: No Pt stated abuse/neglect: No Immunizations Up To Date Tetanus Booster (TDap): Unknown Date of Pneumonia Vaccine: Mar 12, 2019 Current Status Advance Directives: No Communicates: Verbally Primary Language: Mauritanian Preferred Spoken Language: Mauritanian Past Medical History PUD gastric ulcers in elier past/ no interventions Family Medical History Family Hx: Mother passed of CHF at 81 Father passed of CHF at 85 Review of Systems Constitutional: see HPI Focused Exam Height, Weight, BMI Height: 5'7.00" Weight: 165lbs. 4.0oz. 72.914264sv; 22.00 BMI Method:Stated Exam Exam Patient acknowledged, consented, and participated in this virtual visit which was conducted using real time audio/video Vital Signs Date Time Temp Pulse Resp B/P (MAP) Pulse Ox O2 Delivery O2 Flow Rate FiO2 12/20/21 03:13 80 12/20/21 01:27 82 18 138/76 93 Room Air 12/20/21 00:05 36.6 92 16 135/77 (96) 91 Room Air Height & Weight Height: 5'7.00" Weight: 165lbs. 4.0oz. 72.734519gb; 22.00 BMI Method:Stated General Appearance: No Apparent Distress Capillary Refill: Less Than 3 Seconds Gastrointestinal: normal bowel sounds, non tender, soft; No distended, No guarding, No rebound Results Lab Laboratory Tests 12/20/21 00:09 Assessment/Plan Assessment/Plan GI Bleed -ppi iv fluids gi eval corrected hb and coagulopathy check lactic acid SCD boots ЕЛЕНА SANCHES MD Dec 20, 2021 03:23
[2021-12-20] MEDS ORDERED: PANTOPRAZOLE INJECTION 200 MG in NS (IVPB) 100 ML IV SCH (03:30)
[2021-12-20] MEDS ORDERED: PROMETHAZINE INJ 25 MG/ML (PHENERGAN) AMP IVP PRN (03:30)
[2021-12-20] MEDS ORDERED: NS IV 1000 ML 1,000 ML IV SCH (03:30)
[2021-12-20] MEDS ORDERED: ONDANSETRON 4 MG/2 ML (SDV) Z0FRAN IV PRN (03:30)
[2021-12-20] MEDS ORDERED: morphine INJ 4 MG/ML 1 ML (VIAL/SYRINGE) IV PRN (03:30)
[2021-12-20] MEDS ORDERED: RT-ALBUTEROL SULF 2.5 MG/3 ML PRE-MIX VIAL INH PRN (03:30)
[2021-12-20 03:53] LABS: BASOPHILS % (AUTO) 0 % (0-10); EOSINOPHILS # (AUTO) 0.1 10^3/uL (0.0-0.3); EOSINOPHILS % (AUTO) 1 % (0-10); HEMATOCRIT 33 % (35-52); HEMOGLOBIN 10.8 g/dL (11.5-16.0); LYMPHOCYTES # (AUTO) 1.8 10^3/uL (1.0-4.0); LYMPHOCYTES % (AUTO) 16 % (12-44); MEAN CORPUSCULAR HEMOGLOBIN 30 pg (25-34); MEAN CORPUSCULAR HGB CONC 33 g/dL (32-36); MEAN CORPUSCULAR VOLUME 90 fL (80-99); MEAN PLATELET VOLUME 9.5 fL (9.0-12.2); MONOCYTES # (AUTO) 0.9 10^3/uL (0.0-1.0); MONOCYTES % (AUTO) 8 % (0-12); NEUTROPHILS # (AUTO) 8.3 10^3/uL (1.8-7.8); NEUTROPHILS % (AUTO) 74 % (42-75); PLATELET COUNT 249 10^3/uL (130-400); WHITE BLOOD COUNT 11.1 10^3/uL (4.3-11.0)
[2021-12-20 04:04] LABS: POTASSIUM 4.4 MMOL/L (3.6-5.0)
[2021-12-20 04:05] LABS: CALCIUM 10.1 MG/DL (8.5-10.1)
[2021-12-20 04:07] LABS: TOTAL PROTEIN 6.7 GM/DL (6.4-8.2)
[2021-12-20 04:08] LABS: BILIRUBIN,TOTAL 0.4 MG/DL (0.1-1.0)
[2021-12-20 04:10] LABS: CREATININE SERUM 1.19 MG/DL (0.60-1.30); PHOSPHORUS 2.8 MG/DL (2.3-4.7)
[2021-12-20 04:13] LABS: MAGNESIUM 1.8 MG/DL (1.6-2.4)
--- NOTE | 2021-12-20 06:34 | Diagnostic Imaging Report ---
EXAMINATION: CT abdomen and pelvis with intravenous contrast. TECHNIQUE: Multiple contiguous axial images were obtained through the abdomen and pelvis after the uneventful administration of intravenous contrast. All CT scans use one or more of the following dose optimizing techniques: automated exposure control, MA and/or KvP adjustment based on patient size and exam type or iterative reconstruction. HISTORY: Abdominal pain and bloody stools COMPARISON: None available. FINDINGS: Limited views of the lower thorax show emphysema and mild atelectasis in the lung bases. Distal esophagus is thick-walled. The liver is normal without focal lesion. There is no biliary ductal dilation. There is a stone within the gallbladder. No evidence of cholecystitis. Pancreas is normal. Spleen is normal. Adrenal glands are normal. There are innumerable tiny cysts in the kidneys. Kidneys are high in attenuation. There is no hydronephrosis. Urinary bladder is normal. Bowel is normal in caliber without obstruction or inflammation. No free fluid or air. No abdominal or pelvic lymphadenopathy. Aorta is normal in caliber without aneurysm. There are no suspicious osseus lesions. There is a mild chronic appearing T10 compression fracture. IMPRESSION: 1. Thick-walled distal esophagus suggestive of esophagitis. 2. Innumerable cysts in the kidneys with high attenuation in the kidneys possibly representing retained contrast if the patient has had recent administration of intravenous contrast. Correlate for renal insufficiency. There is no significant disagreement with the preliminary report. Dictated by: Dictated on workstation # [id number]
--- NOTE | 2021-12-20 07:06 | History & Physical-Hospitalist ---
History of Present Illness HPI/Chief Complaint Chief complaint: Hematemesis History of present illness: This is a 71-year-old female with past medical history of COPD who wears nighttime oxygen who presents to the [place] ER with hematemesis. Patient was found on CT scan to have esophagitis. Dr. RANDHAWA consulted and will evaluate the need for EGD. No more hematemesis reported. No pain reported Source: patient Exam Limitations: no limitations Date Seen 12/20/21 Time Seen by a Provider: 10:00 Attending Physician Oumou Cortés Aprn PCP Admitting Physician: Radha Chapman DO Attending Physician: Radha Chapman DO Referring Physician Date of Admission Dec 20, 2021 at 02:38 Home Medications & Allergies Home Medications Reviewed patient Home Medication Reconciliation performed by pharmacy medication reconciliations lighting technician and/or nursing. Patients Allergies have been reviewed. Allergies Allergies Coded Allergies strawberry (Unverified Allergy, Severe, HIVES, 08/15/17) Penicillins (Unverified Allergy, Unknown, RASH, 08/15/17) Past Vkjkcwi-Uaxmqv-Ykdaih Hx Patient Social History Marrital Status: single Employed/Student: retired Tobacco Use?: No Smoking Status: Former Smoker Substance use?: No Alcohol Use?: No Pt feels they are or have been: No Immunizations Up To Date Tetanus Booster (TDap): Unknown PED Vaccines UTD: Yes Date of Pneumonia Vaccine: Mar 12, 2019 Seasonal Allergies Seasonal Allergies: Yes Current Status Advance Directives: No Communicates: Verbally Primary Language: Solomon Islander Preferred Spoken Language: [place] Islander Past Medical History COPD, Emphysema Currently Using CPAP: No Currently Using BIPAP: No Cardiomyopathy, Coronary Artery Disease, High Cholesterol, Hypertension 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 Sexually Transmitted Disease: No HIV/AIDS: No Osteoporosis, Arthritis Cataract Loss of Vision: Denies Hearing Impairment: Hard of Hearing Anxiety, Depression Blood Disorders: No PUD gastric ulcers in elier past/ no interventions Family Medical History Mother passed of CHF at 81 Father passed of CHF at 85 Review of Systems Constitutional: see HPI, malaise, weakness EENTM: no symptoms reported Respiratory: no symptoms reported Cardiovascular: no symptoms reported Gastrointestinal: hematemesis Musculoskeletal: no symptoms reported Skin: no symptoms reported Psychiatric/Neurological: No Symptoms Reported All Other Systems Reviewed Negative Unless Noted: Yes Physical Exam Physical Exam Vital Signs Vital Signs - First Documented 12/20/21 12/20/21 00:05 03:15 Temp 36.6 Pulse 92 Resp 16 B/P (MAP) 135/77 (96) Pulse Ox 91 O2 Delivery Room Air O2 Flow Rate 3.00 FiO2 21 Capillary Refill : Less Than 3 Seconds Height, Weight, BMI Height: 5'7.00" Weight: 165lbs. 4.0oz. 72.397107ij; 22.00 BMI Method:Stated General Appearance: No Apparent Distress, Chronically ill Eyes: Right Eye Normal Inspection, Right Eye PERRL HEENT: PERRL/EOMI, Normal ENT Inspection, Pharynx Normal, Moist Mucous Membranes Neck: Full Range of Motion, Normal Inspection, Non Tender Respiratory: Chest Non Tender, Normal Breath Sounds, No Accessory Muscle Use, No Respiratory Distress, Decreased Breath Sounds Cardiovascular: Regular Rate, Rhythm, No Edema, No Gallop, No JVD, No Murmur, Normal Peripheral Pulses Gastrointestinal: Normal Bowel Sounds, No Organomegaly, No Pulsatile Mass, Non Tender, Soft Back: Normal Inspection, No CVA Tenderness, No Vertebral Tenderness Extremity: Normal Capillary Refill, Normal Inspection, Normal Range of Motion, Non Tender, No Calf Tenderness, No Pedal Edema Neurologic/Psychiatric: Alert, Oriented x3, No Motor/Sensory Deficits, Normal Mood/Affect Skin: Normal Color, Warm/Dry Lymphatic: No Adenopathy Results Results/Procedures Labs Laboratory Tests 12/20/21 00:09 12/20/21 03:43 12/20/21 08:03 Patient resulted labs reviewed. Assessment/Plan Admission Diagnosis Assessment: Hematemesis Anemia Severe COPD Hypertension Plan: Supportive care Transfer to fourth floor Appreciate Dr. Randhawa Admission Status: Inpatient Order (span 2 midnights) Reason for Inpatient Admission: Hematemesis Diagnosis/Problems Diagnosis/Problems (1) Coffee ground emesis Status: Acute RADHA CHAPMAN DO Dec 20, 2021 07:06
[2021-12-20 08:10] LABS: HEMOGLOBIN 11.1 g/dL (11.5-16.0)
[2021-12-20] MEDS ORDERED: PANTOPRAZOLE 40 MG (PROTONIX) VIAL IV SCH (09:00)
[2021-12-20] MEDS ORDERED: FLUT1BLS INH (10:07)
[2021-12-20] MEDS ORDERED: RT-ALBUINH IH (10:07)
[2021-12-20] MEDS ORDERED: ALPRAZolam 0.25 MG (XANAX) TAB PO PRN (11:00)
[2021-12-20] MEDS ORDERED: NON-FORMULARY MEDICATION 1 EA EA (Cyclobenzaprine HCl 5 MG) PO PRN (11:00)
[2021-12-20] MEDS ORDERED: CALCIUM CARBONATE 500 MG (TUMS) TAB.CHEW PO PRN (11:00)
[2021-12-20] MEDS ORDERED: diphenhydrAMINE 25 MG TAB (BENADRYL) PO PRN (11:00)
[2021-12-20] MEDS ORDERED: DOCUSATE SODIUM 100 MG (COLACE) CAP PO PRN (11:00)
[2021-12-20] MEDS ORDERED: MELATONIN 3 MG TABLET PO PRN (11:00)
[2021-12-20] MEDS ORDERED: HYDROcodone/APAP 5 MG/325 MG (LORTAB) TAB PO PRN ×2 (11:00)
[2021-12-20] MEDS ORDERED: CYCLOBENZAPRINE 10 MG (FLEXERIL) TAB PO PRN (11:15)
[2021-12-20] MEDS: NS IV 1000 ML 1,000 ML IV SCH ×2 (12:00→18:11)
--- NOTE | 2021-12-20 12:59 | CONSULTATION REPORT ---
DATE OF SERVICE: ATTENDING PRIMARY CARE PHYSICIAN: Oumou Cortés APRN HISTORY OF PRESENT ILLNESS: The patient is a 71-year-old female who presented to [facility] with nausea and coffee ground emesis as well as dark stools. She states that in the morning, she developed nausea and did have some clear vomit; however, this eventually turned to a coffee ground coloration. She also had reported some dark stools later that night. She does report a history of gastroesophageal reflux disease and is on omeprazole. She does not report having these symptoms before in the past. She also does not report taking any nonsteroidal anti-inflammatories on a regular basis and is not on any anticoagulation. PAST MEDICAL HISTORY: COPD, cardiomyopathy, coronary artery disease, hypercholesterolemia, hypertension, migraine, degenerative joint disease. PAST SURGICAL HISTORY: ORIF, fifth metacarpal. ALLERGIES: PENICILLIN. MEDICATIONS: Atorvastatin 10 mg daily, carvedilol 6.25 mg daily, cetirizine 10 mg daily, cyclobenzaprine 5 mg b.i.d. p.r.n., fluoxetine 20 mg daily, hydrocodone p.r.n., lisinopril 2.5 mg daily, montelukast 10 mg daily, omeprazole 40 mg daily, prednisone 50 mg daily, spironolactone 25 mg daily. SOCIAL HISTORY: Negative smoke, negative alcohol. FAMILY HISTORY: Mother and father, congestive heart failure. VITAL SIGNS: Temperature 36.6, blood pressure 108/68, pulse 81, respirations 11, pulse ox 95% on 1.5 liters nasal cannula. REVIEW OF SYSTEMS: Well-nourished female currently in no acute distress. She is not experiencing any shortness of breath or difficulty breathing. No chest pain, palpitations, diaphoresis. Previous episodes of nausea as well as coffee ground emesis as well as dark stools, none since admission. No hematemesis. No red blood per rectum. No fever, chills, no recent inadvertent weight loss. All other review of systems negative. PHYSICAL EXAMINATION: CHEST: Distant breath sounds and scattered wheezes bilaterally. HEART: Regular, no murmurs. EXTREMITIES: No lower extremity edema, negative Homans sign. HEENT: No scleral icterus. NECK: No cervical lymphadenopathy. ABDOMEN: Soft, nondistended. There is mild discomfort in the epigastric region upon deep palpation. No peritoneal signs. ASSESSMENT AND PLAN: A 71-year-old female with likely upper gastrointestinal bleeding. Her vital signs are currently stable and her hemoglobin is stable as well. We will continue with medical therapy with IV proton pump inhibitor and schedule her for an EGD and colonoscopy on this admission versus as an outpatient if patient remains clinically stable. Job ID: [id number] DocumentID: [id number] Dictated Date: 12/20/2021 09:22:12 Animal Eviscerator Date: 12/20/2021 12:58:02 Dictated By: IMAN CHOW MD [facility]
[2021-12-20] MEDS: PANTOPRAZOLE 40 MG (PROTONIX) VIAL IV SCH (20:45)
[2021-12-20] MEDS: SENNA W/DOCUSATE (SENOKOT S) TABLET PO SCH (20:45)
[2021-12-20] MEDS ORDERED: MONTELUKAST 10 MG (SINGULAIR) TAB PO SCH (21:00)
[2021-12-20] MEDS ORDERED: CETIRIZINE HCL (ZYRTEC) 10 MG TAB PO SCH (21:00)
[2021-12-20] MEDS ORDERED: AtorvaSTATin TABLET 10 MG TABLET PO SCH (21:00)
[2021-12-20] MEDS ORDERED: FLUTICASONE/VILANTEROL 200 MCG 14'S (BREO) IH SCH (21:00)
[2021-12-20] MEDS ORDERED: LORATADINE (CLARITIN) 10 MG TAB PO SCH (21:00)
[2021-12-21 06:06] LABS: BASOPHILS % (AUTO) 1 % (0-10); EOSINOPHILS # (AUTO) 0.2 10^3/uL (0.0-0.3); EOSINOPHILS % (AUTO) 3 % (0-10); HEMATOCRIT 33 % (35-52); HEMOGLOBIN 10.3 g/dL (11.5-16.0); LYMPHOCYTES # (AUTO) 2.1 10^3/uL (1.0-4.0); LYMPHOCYTES % (AUTO) 33 % (12-44); MEAN CORPUSCULAR HEMOGLOBIN 30 pg (25-34); MEAN CORPUSCULAR HGB CONC 32 g/dL (32-36); MEAN CORPUSCULAR VOLUME 94 fL (80-99); MEAN PLATELET VOLUME 9.5 fL (9.0-12.2); MONOCYTES # (AUTO) 0.6 10^3/uL (0.0-1.0); MONOCYTES % (AUTO) 10 % (0-12); NEUTROPHILS # (AUTO) 3.3 10^3/uL (1.8-7.8); NEUTROPHILS % (AUTO) 53 % (42-75); PLATELET COUNT 252 10^3/uL (130-400); WHITE BLOOD COUNT 6.2 10^3/uL (4.3-11.0)
[2021-12-21 06:22] LABS: ALBUMIN 3.6 GM/DL (3.2-4.5); POTASSIUM 4.2 MMOL/L (3.6-5.0)
[2021-12-21 06:23] LABS: CALCIUM 9.4 MG/DL (8.5-10.1)
[2021-12-21 06:24] LABS: TOTAL PROTEIN 6.1 GM/DL (6.4-8.2)
[2021-12-21 06:26] LABS: BILIRUBIN,TOTAL 0.4 MG/DL (0.1-1.0)
[2021-12-21 06:28] LABS: CREATININE SERUM 1.23 MG/DL (0.60-1.30)
[2021-12-21 08:00] VITALS: BP 123/98
[2021-12-21] MEDS ORDERED: RT--FLUTICASONE/SALMETEROL 232-14 (AIRDUO RespiCLICK) IH SCH (08:00)
[2021-12-21] MEDS ORDERED: ASCORBIC ACID (VIT C) 500 MG TABLET PO SCH (08:00)
[2021-12-21] MEDS ORDERED: CALCIUM CARBONATE 600 MG (CALCARB) TAB PO SCH (09:00)
[2021-12-21] MEDS ORDERED: NON-FORMULARY MEDICATION 1 EA EA (Ascorbic Acid (Vitamin C) 1,000 MG) PO SCH (09:00)
[2021-12-21] MEDS ORDERED: lisINopril 5 MG (PRINIVIL) TABLET PO SCH (09:00)
[2021-12-21] MEDS ORDERED: FLUoxetine HCL 20 MG (PROzac) CAP PO SCH (09:00)
[2021-12-21] MEDS ORDERED: NON-FORMULARY MEDICATION 1 EA EA (Lisinopril 2.5 MG) PO SCH (09:00)
[2021-12-21] MEDS: PANTOPRAZOLE 40 MG (PROTONIX) VIAL IV SCH (09:38)
[2021-12-21] MEDS: SENNA W/DOCUSATE (SENOKOT S) TABLET PO SCH (09:39)
[2021-12-21] MEDS ORDERED: SPIR25TA5 PO (09:49)
[2021-12-21] MEDS ORDERED: ACET-2267 PO (09:50)
[2021-12-21] MEDS ORDERED: MULT-974 PO (09:50)
[2021-12-21] MEDS: NS IV 1000 ML 1,000 ML IV SCH (11:19)
[2021-12-21 11:45] VITALS: BP 121/57
[2021-12-21] MEDS ORDERED: PANT40TA52 PO (14:01)
--- NOTE | 2021-12-21 14:03 | Discharge Summary ---
Discharge [facility] Discharge Medications New, Converted or Re-Newed RX: Transmitted to Pharmacy New Medications: Pantoprazole Sodium (Pantoprazole Sodium) 40 Mg Tablet. 40 MG PO DAILY, #30 TAB 0 Refills Continued Medications: Acetaminophen (Tylenol Extra Strength) 500 Mg Tablet 500 MG PO Q8H PRN for PAIN-MILD (1-4), TAB Albuterol Sulfate (Proair Hfa) 1 Puff Puff 2 PUFF IH Q4H PRN for SHORTNESS OF BREATH, EA 1 PUFF = 90 MCG Atorvastatin Calcium (Atorvastatin Calcium) 10 Mg Tablet 10 MG PO DAILY, TAB Calcium Carbonate (Calcium) 600 Mg Tablet 600 MG PO DAILY, TAB Cetirizine HCl (Cetirizine HCl) 10 Mg Tablet 10 MG PO HS, TAB Fluoxetine HCl (Fluoxetine HCl) 20 Mg Capsule 20 MG PO DAILY, TAB Fluticasone/Vilanterol (Breo Ellipta 200-25 Mcg INH) 200 Mcg-25 Mcg/Dose Blst.w.dev 1 PUFF INH BID Lisinopril (Lisinopril) 2.5 Mg Tablet 2.5 MG PO DAILY, TAB Montelukast Sodium (Montelukast Sodium) 10 Mg Tablet 10 MG PO HS, TAB Multivitamin (Multi-Vitamin Daily) 1 Each Tablet 1 EACH PO DAILY, TAB Spironolactone (Spironolactone) 25 Mg Tablet 25 MG PO HS, TAB Discontinued Medications: Omeprazole (Omeprazole) 40 Mg Capsule.dr 40 MG PO DAILY, TAB Patient Instructions Goal/Follow Up Appt: Follow up with primary doctor within a week. Follow up with Dr. Randhawa within a week to get scheduled for endoscopies. [facility] to [facility] For: Inability to keep down liquids, vomiting black or bloody, stool black or bloody, dizziness, shortness of breath Activity & Diet Discharge Diet: Eat Small Frequent Meals Activity as Tolerated: Yes YESSICA CERDA MD Dec 21, 2021 14:03
--- NOTE | 2021-12-21 14:03 | Discharge Summary ---
Discharge Summary Hospital Course Hospital Course Date of Admission: Dec 20, 2021 at 02:38 Admission Diagnosis : GI bleed Esophagitis Family Physician/Provider[facility] Date of Discharge: 12/21/21 Discharge Diagnosis: GI bleed Esophagitis Hospital Course: Pt admitted after having dark emesis at home, unable to keep things down. CT showed thickened distal esophagus. She had hemoglobin trend from 11.7 down to 10.3, but was feeling better and able to tolerate food with no vomiting, plan for EGD/colo outpatient per Surgery and she was anxious to be discharged as soon as possible. Labs and Pending Lab Test: Laboratory Tests 12/21/21 05:34: White Blood Count 6.2, Red Blood Count 3.49L, Hemoglobin 10.3L, Hematocrit 33L, Mean Corpuscular Volume 94, Mean Corpuscular Hemoglobin 30, Mean Corpuscular Hemoglobin Concent 32, Red Cell Distribution Width 13.3, Platelet Count 252, Mean Platelet Volume 9.5, Immature Granulocyte % (Auto) 0, Neutrophils (%) (Auto) 53, Lymphocytes (%) (Auto) 33, Monocytes (%) (Auto) 10, Eosinophils (%) (Auto) 3, Basophils (%) (Auto) 1, Neutrophils # (Auto) 3.3, Lymphocytes # (Auto) 2.1, Monocytes # (Auto) 0.6, Eosinophils # (Auto) 0.2, Basophils # (Auto) 0.0, Immature Granulocyte # (Auto) 0.0, Sodium Level 144, Potassium Level 4.2, Chloride Level 108H, Carbon Dioxide Level 25, Anion Gap 11, Blood Urea Nitrogen 17, Creatinine 1.23, Estimat Glomerular Filtration Rate 47, BUN/Creatinine Ratio 14, Glucose Level 91, Calcium Level 9.4, Corrected Calcium 9.7, Total Bilirubin 0.4, Aspartate Amino Transf (AST/SGOT) 15, Alanine Aminotransferase (ALT/SGPT) 13, Alkaline Phosphatase 62, Total Protein 6.1L, Albumin 3.6 Home Meds Active Pantoprazole Sodium 40 Mg Tablet.dr 40 Mg PO DAILY Reported Multi-Vitamin Daily (Multivitamin) 1 Each Tablet 1 Each PO DAILY Tylenol Extra Strength (Acetaminophen) 500 Mg Tablet 500 Mg PO Q8H PRN Spironolactone 25 Mg Tablet 25 Mg PO HS Proair Hfa (Albuterol Sulfate) 1 Puff Puff 2 Puff IH Q4H PRN 1 PUFF = 90 MCG Breo Ellipta 200-25 Mcg INH (Fluticasone/Vilanterol) 200 Mcg-25 Mcg/Dose Blst.w.dev 1 Puff INH BID Calcium (Calcium Carbonate) 600 Mg Tablet 600 Mg PO DAILY Montelukast Sodium 10 Mg Tablet 10 Mg PO HS Cetirizine HCl 10 Mg Tablet 10 Mg PO HS Lisinopril 2.5 Mg Tablet 2.5 Mg PO DAILY Fluoxetine HCl 20 Mg Capsule 20 Mg PO DAILY Atorvastatin Calcium 10 Mg Tablet 10 Mg PO DAILY Assessment/Pt DC Instructions Follow up with primary doctor within a week of discharge. Follow up with Dr. Sydnee malave to set up scopes. Discharge Diet: Eat Small Frequent Meals Activity as Tolerated: Yes Discharge Physical Examination Allergies: Coded Allergies: strawberry (Unverified Allergy, Severe, HIVES, 08/15/17) Penicillins (Unverified Allergy, Unknown, RASH, 08/15/17) General Appearance: No Apparent Distress Respiratory: Lungs Clear, Normal Breath Sounds Cardiovascular: Regular Rate, Rhythm, No Murmur Gastrointestinal: Normal Bowel Sounds, Non Tender, Soft Skin: Warm/Dry Neurologic/Psychiatric: Alert, Oriented x3, Normal Mood/Affect Clinical Quality Measures DVT/VTE Risk/Contraindication: Contraindications-Pharm: Other *list below* Other: YESSICA Ramsey MD Dec 21, 2021 14:03
--- NOTE | 2021-12-21 15:28 | Progress Note ---
Subjective Date Seen by a Provider: Dec 21, 2021 Time Seen by a Provider: 14:50 Subjective/Events-last exam Patient seen with Dr. Rnadhawa. Patient reports doing ok. Denies any abdominal pain as well as no heartburn or reflux. Tolerating diet. Focused Exam Lactate Level 12/20/21 03:43: Lactic Acid Level 0.55 Objective Exam Vital Signs Date Time Temp Pulse Resp B/P (MAP) Pulse Ox O2 Delivery O2 Flow Rate FiO2 12/21/21 11:45 36.6 69 19 121/57 (78) 95 Nasal Cannula 1.00 12/21/21 08:29 Nasal Cannula 1.50 12/21/21 08:00 36.2 77 17 123/98 (106) 95 Nasal Cannula 1.00 12/21/21 07:37 92 Room Air 12/21/21 03:43 36.9 75 18 108/65 98 Nasal Cannula 1.00 12/21/21 00:00 36.5 76 17 111/59 96 Nasal Cannula 1.00 12/20/21 20:45 Nasal Cannula 1.50 12/20/21 19:47 36.3 88 18 99/57 98 Nasal Cannula 1.00 12/20/21 16:03 36.2 74 18 135/71 96 Nasal Cannula 1.00 I & O 12/21/21 07:00 Intake Total 1910 ml Output Total 400 ml Balance 1510 ml Capillary Refill : Less Than 3 Seconds General Appearance: No Apparent Distress, WD/WN Neck: Normal Inspection, Supple Respiratory: No Accessory Muscle Use, No Respiratory Distress Cardiovascular: Regular Rate, Rhythm, No Edema Gastrointestinal: normal bowel sounds, non tender, soft Extremity: Normal Inspection, Normal Range of Motion Neurologic/Psychiatric: Alert, Oriented x3 Skin: Normal Color, Warm/Dry Results Lab Laboratory Tests 12/21/21 05:34: White Blood Count 6.2, Red Blood Count 3.49L, Hemoglobin 10.3L, Hematocrit 33L, Mean Corpuscular Volume 94, Mean Corpuscular Hemoglobin 30, Mean Corpuscular Hemoglobin Concent 32, Red Cell Distribution Width 13.3, Platelet Count 252, Mean Platelet Volume 9.5, Immature Granulocyte % (Auto) 0, Neutrophils (%) (Auto) 53, Lymphocytes (%) (Auto) 33, Monocytes (%) (Auto) 10, Eosinophils (%) (Auto) 3, Basophils (%) (Auto) 1, Neutrophils # (Auto) 3.3, Lymphocytes # (Auto) 2.1, Monocytes # (Auto) 0.6, Eosinophils # (Auto) 0.2, Basophils # (Auto) 0.0, Immature Granulocyte # (Auto) 0.0, Sodium Level 144, Potassium Level 4.2, Chloride Level 108H, Carbon Dioxide Level 25, Anion Gap 11, Blood Urea Nitrogen 17, Creatinine 1.23, Estimat Glomerular Filtration Rate 47, BUN/Creatinine Ratio 14, Glucose Level 91, Calcium Level 9.4, Corrected Calcium 9.7, Total Bilirubin 0.4, Aspartate Amino Transf (AST/SGOT) 15, Alanine Aminotransferase (ALT/SGPT) 13, Alkaline Phosphatase 62, Total Protein 6.1L, Albumin 3.6 Assessment/Plan Assessment/Plan Assess & Plan/Chief Complaint A 71 year old female with GI Bleed VSS Hgb 10.3 - has remained stable during admission It was discussed with patient about proceeding with and EGD/Colonoscopy as inpatient vs outpatient and she would like to schedule it as an outpatient. Ok to DC home from surgical standpoint and follow up with us in the office. 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
[2021-12-21 16:00] VITALS: BP 126/60
== END 2021-12-21 17:22 | disposition home or self-care (01) | DRG 369 ==
LOC: EDUNIT# 23:56 → ER FS 23:59 → ICU 12-20 02:38 → 4TH 12-20 15:21
PROVIDERS: ADMIT Internal Medicine; ATTEND Family Medicine
DX: K20.91 Esophagitis, unspecified with bleeding (principal); I42.9 Cardiomyopathy, unspecified; J43.9 Emphysema, unspecified; I50.9 Heart failure, unspecified; G43.909 Migraine, unspecified, not intractable, without status migrainosus; I25.10 Atherosclerotic heart disease of native coronary artery without angina pectoris; E78.00 Pure hypercholesterolemia, unspecified; M19.90 Unspecified osteoarthritis, unspecified site; M81.0 Age-related osteoporosis without current pathological fracture; F41.9 Anxiety disorder, unspecified; F32.A Depression, unspecified; I11.0 Hypertensive heart disease with heart failure; Z86.73 Personal history of transient ischemic attack (TIA), and cerebral infarction without residual deficits; Z87.891 Personal history of nicotine dependence; D64.9 Anemia, unspecified
CPT/HCPCS: 36415; 74177; 80053; 83605; 83690; 83735; 84100; 84484; 85014; 85018; 85025; 85610; 85730; 86850; 86900; 86901; 93005; 94640; Q9967

== ENCOUNTER → 2022-02-24 | Outpatient (CLI) | payer MEDICARE, MEDICAID ==
[~2022-02-24] MED LIST changes: +ACET-2267 PO; +FLUT1BLS INH; +MULT-974 PO; +PANT40TA52 PO; +RT-ALBUINH IH
--- NOTE | 2022-02-24 13:00 | Diagnostic Imaging Report ---
EXAMINATION: CT chest without contrast. TECHNIQUE: Multiple contiguous axial images were obtained through the chest without the use of intravenous contrast. All CT scans use one or more of the following dose optimizing techniques: automated exposure control, MA and/or KvP adjustment based on patient size and exam type or iterative reconstruction. HISTORY: Emphysema. Follow-up nodules. COMPARISON: 11/18/2021. FINDINGS: The heart size is within normal limits. No pericardial effusion is present. There is no mediastinal, hilar, or axillary lymphadenopathy. Centrilobular emphysema is again seen throughout the lungs, greatest in the apices. The area of focal consolidation in the inferior portion of the right upper lobe has resolved. Stable scattered subcentimeter pulmonary nodules are seen, with the largest in the medial aspect of the left lower lobe measuring 0.6 cm. No new suspicious pulmonary nodules. No central endobronchial obstructing lesions are identified. There is no pleural effusion or pneumothorax. The osseous structures demonstrate no acute abnormalities. Cholelithiasis is noted without CT evidence of acute cholecystitis. Small hiatal hernia is seen. Both adrenal glands are unremarkable. IMPRESSION: 1. Resolution of the patchy consolidative opacities in the right upper lobe. No new focal consolidations are seen. 2. Stable subcentimeter pulmonary nodules measuring up to 0.6 cm. Recommend continued surveillance with CT chest in 12 months. 3. Cholelithiasis without CT evidence of acute cholecystitis. 4. Small hiatal hernia. Dictated by: Dictated on workstation # [id number]
== END ==
LOC: RAD FS 09:27
PROVIDERS: ATTEND Nurse Practitioner Family
DX: J18.1 Lobar pneumonia, unspecified organism (principal); J43.9 Emphysema, unspecified; K80.20 Calculus of gallbladder without cholecystitis without obstruction; K44.9 Diaphragmatic hernia without obstruction or gangrene; R91.8 Other nonspecific abnormal finding of lung field
CPT/HCPCS: 71250

== ENCOUNTER 2022-08-04 19:28 | Emergency (ER) | payer MEDICARE, MEDICAID ==
[~2022-08-04] VITALS: Ht 160.2 cm; Wt 72.5 kg
[~2022-08-04 19:28] MED LIST changes: +ALBU8.5H6 IH; -RT-ALBUINH IH
[2022-08-04 19:32] VITALS: BP 136/70
[2022-08-04] MEDS ORDERED: NS IV 1000 ML 1,000 ML IV STA (19:37)
[2022-08-04] MEDS ORDERED: ONDANSETRON 4 MG/2 ML (SDV) Z0FRAN IVP STA (19:37)
--- NOTE | 2022-08-04 19:41 | ED Abdominal Pain ---
General Stated Complaint: N/V/D Source of Information: Patient, EMS History of Present Illness Date Seen by Provider: Aug 04, 2022 Time Seen by Provider: 19:28 Initial Comments 72-year-old female presenting by EMS from home due to complaints of nausea, vomiting, diarrhea since last night. She states that her grandchildren were visiting over the weekend and one of them had vomiting. She denies having fever or chills. She has some intermittent left lower quadrant abdominal pain. She denies having cough, headache, chest pain, shortness of breath, pain with urination. She states that she has not been able to keep anything down all day and has just been very tired. She had a similar episode in December 2021 and had to be admitted because at that time she was vomiting coffee-ground emesis and having black tarry stools. However patient states that she is never scheduled to follow-up to have the endoscopy or scopes done to look for recent with her bleeding in December. She has been doing fine since December until last night. She denies black tarry stools or coffee ground emesis today. She lives at home with her boyfriend. Timing/Duration: 24 Hours Severity/Quality: Mild, Cramping (intermittent left lower quadrant) Location: LLQ Radiation: No Radiation Activities at Onset: None Modifying Factors: Worsens With Defecating, Worsens With Vomiting Associated Symptoms: No Back Pain, No Chest Pain, No Diaphoresis, No Fever/Chills; Fatigue; No Headache, No Heartburn; Nausea/Vomiting; No Rash, No Shortness of Air, No Swelling/Mass in Abdomen, No Syncope; Weakness (general) Allergies and Home Medications Allergies Coded Allergies: strawberry (Unverified Allergy, Severe, HIVES, 08/15/17) Penicillins (Unverified Allergy, Unknown, RASH, 08/15/17) Patient Home Medication List Home Medication List Reviewed: Yes Acetaminophen (Tylenol Extra Strength) 500 Mg Tablet, 500 MG PO Q8H PRN for PAIN-MILD (1-4), (Reported) Entered as Reported by: CLEMENTINE FUENTES on 12/21/21 0950 Albuterol Sulfate (Ventolin Hfa) 1 Puff Puff, 2 PUFF IH Q4H PRN for SHORTNESS OF BREATH, (Reported) Entered as Reported by: MIKEL SERRANO on 12/20/21 1007 Atorvastatin Calcium (Atorvastatin Calcium) 10 Mg Tablet, 10 MG PO DAILY, ( Reported) Entered as Reported by: JUAN DIEGO BRADLEY on 03/11/20 1306 Calcium Carbonate (Calcium) 600 Mg Tablet, 600 MG PO DAILY, (Reported) Entered as Reported by: JUAN DIEGO BRADLEY on 03/11/20 1306 Cetirizine HCl (Cetirizine HCl) 10 Mg Tablet, 10 MG PO HS, (Reported) Entered as Reported by: JUAN DIEGO BRADLEY on 03/11/20 1306 Fluoxetine HCl (Fluoxetine HCl) 20 Mg Capsule, 20 MG PO DAILY, (Reported) Entered as Reported by: JUAN DIEGO BRADLEY on 03/11/20 1306 Fluticasone/Vilanterol (Breo Ellipta 200-25 Mcg INH) 200 Mcg-25 Mcg/Dose B lst.w.dev, 1 PUFF INH BID, (Reported) Entered as Reported by: MIKEL SERRANO on 12/20/21 1007 Lisinopril (Lisinopril) 2.5 Mg Tablet, 2.5 MG PO DAILY, (Reported) Entered as Reported by: JUAN DIEGO BRADLEY on 03/11/20 1306 Montelukast Sodium (Montelukast Sodium) 10 Mg Tablet, 10 MG PO HS, (Reported) Entered as Reported by: JUAN DIEGO BRADLEY on 03/11/20 1306 Multivitamin (Multi-Vitamin Daily) 1 Each Tablet, 1 EACH PO DAILY, (Reported) Entered as Reported by: CLEMENTINE FUENTES on 12/21/21 0950 Ondansetron (Ondansetron Odt) 4 Mg Tab.rapdis, 4 MG PO Q6H PRN for NAUSEA/VOMITING Prescribed by: CROW FABIAN on 08/04/222115 Pantoprazole Sodium (Pantoprazole Sodium) 40 Mg Tablet.dr, 40 MG PO DAILY Prescribed by: YESSICA CERDA on 12/21/21 1401 Spironolactone (Spironolactone) 25 Mg Tablet, 25 MG PO HS, (Reported) Entered as Reported by: CLEMENTINE FUENTES on 12/21/21 0949 Review of Systems Review of Systems Constitutional: No chills, No dizziness, No fever; malaise, weakness (general) EENTM: No Symptoms Reported Respiratory: No Symptoms Reported Cardiovascular: No Symptoms Reported Gastrointestinal: See HPI Genitourinary: Denies Pain, Denies Urgency Musculoskeletal: no symptoms reported Skin: No rash Psychiatric/Neurological: Denies Headache Endocrine: No Symptoms Reported Past Ebhiqdy-Mligyj-Bcuewf Hx Immunizations Up To Date Tetanus Booster (TDap): Unknown PED Vaccines UTD: Yes Seasonal Allergies Seasonal Allergies: Yes Past Medical History Surgeries: No Respiratory: Yes COPD, Emphysema Currently Using CPAP: No Currently Using BIPAP: No Cardiac: Yes (CHF) Cardiomyopathy, Coronary Artery Disease, High Cholesterol, Hypertension Neurological: Yes (CVA) Headaches /Migraines Reproductive Disorders: No Female Reproductive Disorders: Denies [employer] History: Menopausal Sexually Transmitted Disease: No HIV/AIDS: No Genitourinary: No Gastrointestinal: No Musculoskeletal: Yes (nondisplaced fracture of distal fibula, displaced fracture fifth metacarpal) Osteoporosis, Arthritis Endocrine: No HEENT: No Cataract Loss of Vision: Denies Hearing Impairment: Hard of Hearing Cancer: No Psychosocial: No Anxiety, Depression Integumentary: Yes (cellulitis, abscess of neck) Blood Disorders: No Family Medical History Mother passed of CHF at 81 Father passed of CHF at 85 Physical Exam Vital Signs Vital Signs - First Documented 08/04/22 19:32 Temp 37.0 Pulse 108 Resp 24 B/P (MAP) 136/70 (92) Pulse Ox 95 O2 Delivery Room Air Capillary Refill : Height/Weight/BMI Height: 5'7.00" Weight: 165lbs. 4.0oz. [id number]; 22.00 BMI Method:Stated General Appearance: other (appears older than stated age and chronically ill) HEENT: pharynx normal Neck: non-tender, full range of motion, supple, normal inspection Respiratory: chest non-tender, lungs clear, normal breath sounds, no respiratory distress, no accessory muscle use Cardiovascular: normal peripheral pulses, regular rate, rhythm Gastrointestinal: normal bowel sounds, non tender, soft, no pulsatile mass Rectal: deferred Extremities: normal range of motion, non-tender, normal capillary refill Neurologic/Psychiatric: alert, oriented x 3 Skin: normal color, warm/dry Focused Exam Lactate Level 08/04/22 19:58: Lactic Acid Level 1.52 Lactic Acid Level Laboratory Tests Test 08/04/22 19:58 Lactic Acid Level 1.52 MMOL/L (0.50-2.00) Progress/Results/Core Measures Results/Orders Lab Results Laboratory Tests Test 08/04/22 19:39 08/04/22 19:58 08/04/22 20:34 Range/Units White Blood Count 7.2 4.3-11.0 10^3/uL Red Blood Count 3.98 3.80-5.11 10^6/uL Hemoglobin 11.8 11.5-16.0 g/dL Hematocrit 35 35-52 % Mean Corpuscular Volume 87 80-99 fL Mean Corpuscular Hemoglobin 30 25-34 pg Mean Corpuscular Hemoglobin Concent 34 32-36 g/dL Red Cell Distribution Width 13.3 10.0-14.5 % Platelet Count 266 130-400 10^3/uL Mean Platelet Volume 9.5 9.0-12.2 fL Immature Granulocyte % (Auto) 0 % Neutrophils (%) (Auto) 63 42-75 % Lymphocytes (%) (Auto) 21 12-44 % Monocytes (%) (Auto) 14 H 0-12 % Eosinophils (%) (Auto) 2 0-10 % Basophils (%) (Auto) 0 0-10 % Neutrophils # (Auto) 4.5 1.8-7.8 10^3/uL Lymphocytes # (Auto) 1.5 1.0-4.0 10^3/uL Monocytes # (Auto) 1.0 0.0-1.0 10^3/uL Eosinophils # (Auto) 0.2 0.0-0.3 10^3/uL Basophils # (Auto) 0.0 0.0-0.1 10^3/uL Immature Granulocyte # (Auto) 0.0 0.0-0.1 10^3/uL Sodium Level 140 135-145 MMOL/L Potassium Level 4.1 3.6-5.0 MMOL/L Chloride Level 106 98-107 MMOL/L Carbon Dioxide Level 20 L 21-32 MMOL/L Anion Gap 14 5-14 MMOL/L Blood Urea Nitrogen 24 H 7-18 MG/DL Creatinine 1.59 H 0.60-1.30 MG/DL Estimat Glomerular Filtration Rate 34 BUN/Creatinine Ratio 15 Glucose Level 117 H 70-105 MG/DL Calcium Level 9.2 8.5-10.1 MG/DL Corrected Calcium 8.9 8.5-10.1 MG/DL Total Bilirubin 0.2 0.1-1.0 MG/DL Aspartate Amino Transf (AST/SGOT) 30 5-34 U/L Alanine Aminotransferase (ALT/SGPT) 22 0-55 U/L Alkaline Phosphatase 91 40-136 U/L C-Reactive Protein 0.59 H <0.50 MG/DL Total Protein 7.2 6.4-8.2 GM/DL Albumin 4.4 3.2-4.5 GM/DL Lactic Acid Level 1.52 0.50-2.00 MMOL/L Urine Color YELLOW Urine Clarity SL CLOUDY Urine pH 5.5 5-9 Urine Specific [place] 1.020 1.016-1.022 Urine Protein NEGATIVE NEGATIVE Urine Glucose (UA) NEGATIVE NEGATIVE Urine Ketones TRACE H NEGATIVE Urine Nitrite NEGATIVE NEGATIVE Urine Bilirubin NEGATIVE NEGATIVE Urine Urobilinogen 0.2 < = 1.0 MG/DL Urine Leukocyte Esterase NEGATIVE NEGATIVE Urine RBC (Auto) NEGATIVE NEGATIVE Urine RBC NONE /HPF Urine WBC 0-2 /HPF Urine Squamous Epithelial Cells 0-2 /HPF Urine Crystals /LPF Urine Bacteria TRACE /HPF Urine Casts PRESENT /LPF Urine Hyaline Casts 0-2 H /LPF Urine Mucus SMALL H /LPF Urine Culture Indicated NO My Orders Orders - CROW FABIAN MD Cbc With Automated Diff (08/04/22 19:37) Comprehensive Metabolic Panel (08/04/22 19:37) Blood Culture (08/04/22 19:37) Ua Culture If Indicated (08/04/22 19:37) Ed Iv/Invasive Line Start (08/04/22 19:37) Crp Fs (08/04/22 19:37) Lactic Acid Analyzer (08/04/22 19:37) Ns Iv 1000 Ml (Sodium Chloride 0.9%) (08/04/22 19:37) Ondansetron Injection (Zofran Injectio (08/04/22 19:37) Ct Abdomen/Pelvis Wo (08/04/22 19:37) Pantoprazole Injection (Protonix Injecti (08/04/22 20:16) Rx-Ondansetron Po (Rx-Zofran Po) (08/04/22 21:15) Medications Given in ED Current Medications Medications Dose Ordered Sig/Jalyn Route Start Time Stop Time Status Last Admin Dose Admin Ondansetron HCl 4 mg Q6H PRN PO 08/04/22 21:15 08/04/22 21:37 DC 08/04/22 21:30 4 MG Vital Signs/I&O 08/04/22 19:32 Temp 37.0 Pulse 108 Resp 24 B/P (MAP) 136/70 (92) Pulse Ox 95 O2 Delivery Room Air Progress Progress Note #1: Progress Note Potential diagnosis of gastroenteritis, diverticulitis, colitis, pyelonephritis, cystitis, food poisoning, pancreatitis, peptic ulcer disease, bowel obstruction, renal colic. Obtain urinalysis to look for signs of infection in her urine. Obtain labs to look for complete blood count, looking for anemia or elevated white blood cell count for infection. Comprehensive metabolic profile to look for acute electrolyte imbalance such as hypokalemia or acute renal failure from her reported vomiting and diarrhea for 24 hours. Blood cultures and lactic acid to look for sepsis or ischemic bowel. CT scan of the abdomen and pelvis without IV contrast as her last set of labs had shown a GFR of 47 and this could certainly be worse today for acute kidney injury with her stating that she has not been able to keep anything down all day. Administer normal saline 1 L IV fluid bolus for hydration, Zofran 4 mg IV for nausea and vomiting, pantoprazole 40 mg IV for possible gastritis. Progress Note #2: Time: 20:09 Progress Note Blood count shows WBC is not elevated and Hemoglobin is not showing anemia as it is 12.8. Awaiting other tests. 2011 Comprehensive metabolic panel shows mild worsening of kidney function with BUN up to 24 and Cr up to 1.59 up from 1.24 in December 2021 with GFR 34 down from 47 in December 2021 this could indicate some dehydration or worsening of renal insufficiency. Mild elevation of glucose to 117 which could be stress reaction to her n/v/d. CRP is slightly elevated to 0.59 to indicate inflammatory or infectious process. On my personal interpretation and review of her CT scan of the abdomen and pelvis with IV contrast she has gallstones in the gallbladder but there is no surrounding fluid or gallbladder wall thickening to indicate cholecystitis. I did not appreciate any diverticulitis or inflammation along the colon in the left lower quadrant. She had no signs of obstruction or free air. Progress Note #3: Time: 20:56 Progress Note I reviewed the radiologist report on her CT scan of the abdomen and pelvis w ithout IV contrast. They reported that she has no acute process to explain her left lower quadrant abdominal pain vomiting with diarrhea. She does have cholelithiasis but no signs of cholecystitis. When reviewing results with the patient she reports feeling better with treatment here in the ED. She has had no further abdominal pain and no vomiting or diarrhea while here in the ED. Encourage fluids at home. May use acetaminophen to help with any pain or fever. Sent with 4 dissolving Zofran 4 mg tablets so that she had something to help with nausea. Sent a prescription to the pharmacy to continue Zofran 4 mg every 6 hours as needed for nausea and vomiting x2 days. Protonix 40 mg IV was ordered for here in the ED. With her history of GI bleeding in December 2021 and not following up she was encouraged to check with Dr. Randhawa or surgeon of her choice for follow up on endoscopy testing to look for ulcers or polyps. Follow a liquid diet for 24 hours and advance to bland and soft for 24 hours and if tolerated advance to regular diet. Follow up with clinic for continued concerns and be seen sooner if having worsening problems Diagnostic Imaging Diagonstic Imaging: CT Plain Films/CT/US/NM/MRI: abdomen, pelvis Comments NAME: [facility] REC#: [id number] PT STATUS: REG ER : 1950 PHYSICIAN: CROW FABIAN MD ADMIT DATE: 08/04/22/ER FS Signed Date of Exam:08/04/22 CT ABDOMEN/PELVIS WO PROCEDURE: CT abdomen and pelvis without contrast. TECHNIQUE: Multiple contiguous axial images were obtained through the abdomen and pelvis without the use of intravenous contrast. Auto Exposure Controls were utilized during the CT exam to meet ALARA standards for radiation dose reduction. INDICATION: Indication: Left lower quadrant pain with nausea and vomiting. FINDINGS: There is centrilobular emphysema in the lung bases. There is a small hiatal hernia. The liver is normal in size without focal lesions. Cholelithiasis. No biliary duct dilatation. Spleen is normal. The pancreas and adrenal glands are unremarkable. The kidneys are somewhat nodular appearance however otherwise unremarkable. Aorta is nonaneurysmal. Bowel gas pattern is nonspecific. No free air. No ascites. No focal inflammatory changes. No pelvic mass adenopathy or free fluid. There are degenerative changes in the spine IMPRESSION: Cholelithiasis. Nodular appearance of the kidneys suspect for underlying cysts. No focal inflammatory change in the abdomen to suggest diverticulitis. Degenerative changes in spine. Dictated by: Dictated on workstation # [id number] Dict: 08/04/222044 Trans: 08/04/222046 [id number] Interpreted by: LANG AYALA MD Electronically signed by: LANG AYALA MD 08/04/222046 Reviewed: Reviewed by Me (2055 I reviewed Radiologist report for CT scan abdomen/pelvis without IV contrast) Departure Impression Primary Impression: Nausea vomiting and diarrhea Additional Impressions: Mild dehydration Abdominal cramping Disposition: HOME, SELF-CARE Condition: Improved Departure-Patient Inst. Decision time for Depature: 21:16 Referrals: ZOHRA GARCIA APRN (PCP) Primary Care Physician [facility] (Family) Primary Care Physician IMAN RANDHAWA MD Patient Instructions: Dehydration, Adult ED, Diarrhea, Adult ED, Full Liquid Diet, Nausea and Vomiting, Adult ED, Ulcer and Gastritis Diet Add. Discharge Instructions: Use the dissolving nausea medicine to help keep your stomach settled so you can drink better. Follow a liquid diet for 24 hours and then if you are tolerating that you could advance your diet to eating soft and bland foods for 24 hours. If still doing ok with that then you could go back to eating your regular foods and diet. Check with Dr. Randhawa or surgeon of your choice as follow up from December 2021 when you had bleeding in your diarrhea and vomit. You would still benefit from possible endoscopy to use a camera to look for ulcers in your stomach or polyps in the colon. Scripts Ondansetron (Ondansetron Odt) 4 Mg Tab.rapdis 4 MG PO Q6H PRN for NAUSEA/VOMITING for 2 Days, #8 TAB 0 Refills Prov: CROW FABIAN MD 08/04/22 CROW FABIAN MD Aug 04, 2022 19:41
[2022-08-04 19:49] LABS: BASOPHILS % (AUTO) 0 % (0-10); EOSINOPHILS # (AUTO) 0.2 10^3/uL (0.0-0.3); EOSINOPHILS % (AUTO) 2 % (0-10); HEMATOCRIT 35 % (35-52); HEMOGLOBIN 11.8 g/dL (11.5-16.0); LYMPHOCYTES # (AUTO) 1.5 10^3/uL (1.0-4.0); LYMPHOCYTES % (AUTO) 21 % (12-44); MEAN CORPUSCULAR HEMOGLOBIN 30 pg (25-34); MEAN CORPUSCULAR HGB CONC 34 g/dL (32-36); MEAN CORPUSCULAR VOLUME 87 fL (80-99); MEAN PLATELET VOLUME 9.5 fL (9.0-12.2); MONOCYTES % (AUTO) 14 % (0-12); NEUTROPHILS # (AUTO) 4.5 10^3/uL (1.8-7.8); NEUTROPHILS % (AUTO) 63 % (42-75); PLATELET COUNT 266 10^3/uL (130-400); WHITE BLOOD COUNT 7.2 10^3/uL (4.3-11.0)
[2022-08-04 20:10] LABS: POTASSIUM 4.1 MMOL/L (3.6-5.0)
[2022-08-04 20:11] LABS: ALBUMIN 4.4 GM/DL (3.2-4.5); BILIRUBIN,TOTAL 0.2 MG/DL (0.1-1.0); CALCIUM 9.2 MG/DL (8.5-10.1); CREATININE SERUM 1.59 MG/DL (0.60-1.30); TOTAL PROTEIN 7.2 GM/DL (6.4-8.2)
[2022-08-04] MEDS ORDERED: PANTOPRAZOLE 40 MG (PROTONIX) VIAL IV STA (20:16)
[2022-08-04 20:43] LABS: BILIRUBIN,URINE NEGATIVE (NEGATIVE); CLARITY,URINE SL CLOUDY; COLOR,URINE YELLOW; GLUCOSE, URINE (UA) NEGATIVE (NEGATIVE); KETONES,URINE TRACE (NEGATIVE); LEUKOCYTE ESTERASE ,URINE NEGATIVE (NEGATIVE); NITRITE,URINE NEGATIVE (NEGATIVE); PH,URINE 5.5 (5-9); PROTEIN,URINE NEGATIVE (NEGATIVE)
[2022-08-04 20:49] LABS: BACTERIA,URINE TRACE /HPF; SQUAMOUS EPITHELIAL CELL,UR 0-2 /HPF; WBC,URINE 0-2 /HPF
--- NOTE | 2022-08-04 20:49 | Diagnostic Imaging Report ---
PROCEDURE: CT abdomen and pelvis without contrast. TECHNIQUE: Multiple contiguous axial images were obtained through the abdomen and pelvis without the use of intravenous contrast. Auto Exposure Controls were utilized during the CT exam to meet ALARA standards for radiation dose reduction. INDICATION: Indication: Left lower quadrant pain with nausea and vomiting. FINDINGS: There is centrilobular emphysema in the lung bases. There is a small hiatal hernia. The liver is normal in size without focal lesions. Cholelithiasis. No biliary duct dilatation. Spleen is normal. The pancreas and adrenal glands are unremarkable. The kidneys are somewhat nodular appearance however otherwise unremarkable. Aorta is nonaneurysmal. Bowel gas pattern is nonspecific. No free air. No ascites. No focal inflammatory changes. No pelvic mass adenopathy or free fluid. There are degenerative changes in the spine IMPRESSION: Cholelithiasis. Nodular appearance of the kidneys suspect for underlying cysts. No focal inflammatory change in the abdomen to suggest diverticulitis. Degenerative changes in spine. Dictated by: Dictated on workstation # [id number]
[2022-08-04 20:50] LABS: HYALINE CASTS, URINE 0-2 /LPF
[2022-08-04] MEDS ORDERED: RX-ONDANSETRON 4 MG ODT (ZOFRAN) PPK #4 PO PRN (21:15)
[2022-08-04] MEDS ORDERED: ONDA4TAB11 PO (21:16)
== END 2022-08-04 21:30 | disposition home or self-care (01) ==
LOC: EDUNIT# 19:28 → ER FS 19:29
DX: R11.2 Nausea with vomiting, unspecified (principal); R19.7 Diarrhea, unspecified; E86.0 Dehydration; R10.32 Left lower quadrant pain; Z28.310 Unvaccinated for COVID-19
CPT/HCPCS: 36415; 74176; 80053; 81000; 83605; 85025; 86141; 87040

== ENCOUNTER 2022-09-15 08:55 | Outpatient (CLI) | payer MEDICARE, MEDICAID ==
[~2022-09-15] VITALS: Ht 160 cm; Wt 68.0 kg
[~2022-09-15 08:55] MED LIST changes: +ONDA4TAB11 PO
== END 2022-09-15 11:10 ==
LOC: PREOP 08:55
PROVIDERS: ATTEND Surgery
DX: Z01.818 Encounter for other preprocedural examination (principal)